=== PATIENT | female | born 1965 | race Caucasian/White ===

== ENCOUNTER 2022-04-14 15:57 | Emergency (ER) | payer OTHER, BC ==
--- OUTSIDE RECORDS SUMMARY | 2022-04-14 16:05 | XMS REPORT | Continuity of Care Document ---
:1965 Author Organization [facility] t Address [address] [place] [address] Care Team Providers Name Role Phone CARI MCKAY Primary Care Physician Unavailable Cari Mckay Attending Clinician Unavailable Layton Herron Attending Clinician Unavailable AGUSTÍN RICHARDS Attending Clinician Unavailable Agustín Richards MD Attending Clinician Doctor Unassigned, [place] Attending Clinician Unavailable Donn Sousa Attending Clinician MOOK MOORE Attending Clinician Unavailable Lab, Ad[facility] Fam Pob I Attending Clinician Unavailable Mook Irizarry Attending Clinician Fidel Matute MD Attending Clinician FIDEL MATUTE Attending Clinician Unavailable Payers Payer Name Policy Type Policy Number Effective Date Expiration Date S [place] [id number] 2015 00:00:00 [employer] 6 [id number] 2021 Common Spiri t Blue Shield of 00:00:00 - [facility] Problems Condition Condition Condition Status Onset Resolution Last Treating Co mments Source Name Details Category Date Date Treatment Clinician Date [id number] Carpal Problem Commo n [id number] tunnel Spirit syndrome - [facility]I on [facility] Depression Depression Problem C ommon Spirit - [facility] Benign Benign Problem Common hypertensi hypertensi Sp rita on on - CHI [facility] [id number] Overactive Problem Co mmon bladder Spirit - [facility] Diabetes Diabetes Problem Commo n mellitus Spirit without - CHI complicati [facility] Carpal Carpal Problem Common tunnel tunnel Spirit syndrome syndrome - [facility] [id number] Urinary Problem Common urgency Spirit [facility] [id number] Lower Problem Common abdominal Spirit pain - [facility] [id number] Dysuria Problem Common Spirit - [facility] [id number] Urinary Problem Comm on tract Spirit infection, - CHI site not [facility] [id number] Vitamin D Problem Comm on deficiency Spirit disease - [facility] [id number] Current Problem Common moderate Spirit episode of - CHI major [facility] prior episode [id number] History of Problem Co mmon skin Spirit cancer in - CHI adulthood [facility] [id number] Panic Problem Common attack Spirit - [facility] [id number] Type 2 Problem Common diabetes Spirit mellitus - CHI with [facility] Center long-term current use of insulin [id number] Generalize Problem Com mon d anxiety Spirit disorder - [facility] [id number] Body mass Problem Com mon index Spirit [BMI] - [facility] 40.0-44.9, [facility] [id number] History of Problem Co mmon partial Spirit hysterecto - CHI my [facility] [id number] [place] n [id number] tunnel Spirit syndrome, - CHI left upper [facility] [id number] Car[place] n [id number] tunnel Spirit syndrome, - CHI right [facility] [id number] Acute Problem Common stress Spirit disorder - [facility] No known No known Disease Unive rs active active ity of problems problems [facility] [id number] Morbid Problem Commo n 9104 (severe) Spirit obesity - CHI due to [facility] Allergies, Adverse Reactions, Alerts Allergy Allergy Status Severity Reaction(s) Onset Inactive Treating Comm ents Source Name Type Date Date Clinician SULFA DRUG Active Anaphylaxis Unive rs DYNE 03-01 ity of 00:00: [place] 00 Medical Branch LATEX DRUG Active Other-Cmnt Univer s INGREDI 03-01 ity of 00:00: [place] [facility] Latex Propensi Active Other - See Blisters U nivers ty to comments 03-01 ity of adverse 00:00: [place] reaction 00 Medical s Branch Sulfa Propensi Active Anaphylaxis Uni vers Dyne ty to 03-01 ity of adverse 00:00: [place] reaction 00 Medical s Branch Shellfis Shellfis Active Unknown Commo n h h Spirit - [facility] Latex Latex Active Unknown Common Spirit - [facility] NO KNOWN Drug Active Univers ALLERGIE Class ity of [facility] Social History Social Habit Start Date Stop Date Quantity Comments Source History of Common Spirit - Tobacco Use [facility] Sex Assigned At Common Sp rita - [facility] Exposure to 2022-02-19 2022-03-01 Not sure University SARS-CoV-2 00:00:00 09:12:00 [facility] (event) Branch Alcohol intake 2022-03-01 2022-03-01 Current drinker Unive rsity of 00:00:00 00:00:00 of alcohol [facility] (finding) Branch Tobacco use and 2022-03-01 2022-03-01 Smokeless tobacco Un iversity of exposure 00:00:00 00:00:[address] [facility] Smoking Status Start Date Stop Date Source Tobacco smoking consumption Univ ersity of [facility] unknown [place] Never smoked tobacco [facility] Medications Ordered Filled Start Stop Current Ordering Indication Dosage Frequency Signature Comments Components Source Medication Medication Date Date Medication? Clinician (SIG) Name Name Acetaminoph Acetaminoph 2021-06 No 1{table Acetaminop en-Codeine en-Codeine 1- t_as_ne hen-Codein #3 300-30 #3 300-30 00:00: eded} e #3 MG MG 00 300-30 MG Acetaminoph Acetaminoph 2021-06 No 1{table Acetaminop en-Codeine en-Codeine 1- t_as_ne hen-Codein #3 300-30 #3 300-30 00:00: eded} e #3 MG MG 00 300-30 MG conjugated Yes .9mg Take 0.9 Uni vers estrogens 9-28 mg by ity of (PREMARIN) 09:32: mouth in [place] as 0.9 mg 00 the Medical tablet morning. Branch irbesartan- Yes 1{tbl} Take 1 Un vickey hydrochloro 9-28 tablet by ity of thiazide 09:32: mouth in [place] 150-12.5 mg 00 the Medical per tablet morning. Branc h hydroCHLORO 0 Yes 12.5mg Take 12.5 Univers thiazide 9-28 mg by ity of 12.5 mg 09:32: mouth in [place] capsule 00 the Medical morning. Branch repaglinide Yes 2mg Take 2 mg U nivers 2 mg tablet 03-01 by mouth ity of 09:32: in the [place] 00 morning Medical and 2 mg Branch at noon and 2 mg in the evening. Take before meals. Take 2 tablets TID with meals tirzepatide Yes inject Univ ers (MOUNJARO) 03-01 under the ity of 2.5 mg/0.5 09:32: skin. [place] mL PnIj 00 Medical Branch venlafaxine Yes 150mg Take 150 U nivers XR 150 mg 9-28 mg by ity of 24 hr 09:32: mouth [place] capsule 00 daily with Medica l breakfast. Branch aspirin 81 0 Yes 81mg Take 81 mg U nivers mg chewable 28 by mouth ity of tablet 09:32: in the [place] 00 morning. Medical Branch MULTIVITAMI Yes Take by Uni vers N ORAL 9-28 mouth. ity of 09:32: [place] 00 Medical Branch conjugated 0 Yes .9mg Take 0.9 Uni vers estrogens 9-28 mg by ity of (PREMARIN) 09:32: mouth in [place] as 0.9 mg 00 the Medical tablet morning. Branch irbesartan- Yes 1{tbl} Take 1 Un vickey hydrochloro 9-28 tablet by ity of thiazide 09:32: mouth in [place] 150-12.5 mg 00 the Medical per tablet morning. Branc h hydroCHLORO 0 Yes 12.5mg Take 12.5 Univers thiazide 9-28 mg by ity of 12.5 mg 09:32: mouth in [place] capsule 00 the Medical morning. Branch repaglinide Yes 2mg Take 2 mg U nivers 2 mg tablet 03-01 by mouth ity of 09:32: in the 00 morning Medical and 2 mg Branch at noon and 2 mg in the evening. Take before meals. Take 2 tablets TID with meals tirzepatide Yes inject Univ ers (MOUNJARO) 03-01 under the ity of 2.5 mg/0.5 09:32: skin. [place] mL PnIj 00 Medical Branch venlafaxine Yes 150mg Take 150 U nivers XR 150 mg - mg by ity of 24 hr 09:32: mouth [place] capsule 00 daily with Medica l breakfast. Branch aspirin 81 Yes 81mg Take 81 mg U nivers mg chewable 03-01 by mouth ity of tablet 09:32: in the [place] 00 morning. Medical Branch MULTIVITAMI Yes Take by Uni vers N ORAL 03-01 mouth. ity of 09:32: [place] 00 Medical Branch Mounjaro Mounjaro 2021- No Mounjaro 2.5 2.5 02-08 12-05 2.5 MG/0.5ML MG/0.5ML 00:00: 00:00 MG/0.5ML 00 :00 Mounjaro Mounjaro 2021- No Mounjaro 2.5 2.5 02-08 12-05 2.5 MG/0.5ML MG/0.5ML 00:00: 00:00 MG/0.5ML 00 :00 Mounjaro Mounjaro 2021-0 2021- No Mounjaro 2.5 2.5 02-08 12-05 2.5 MG/0.5ML MG/0.5ML 00:00: 00:00 MG/0.5ML 00 :00 Mounjaro Mounjaro 2021-0 202- No Mounjaro 2.5 2.5 02-08 12-05 2.5 MG/0.5ML MG/0.5ML 00:00: 00:00 MG/0.5ML 00 :00 Mounjaro Mounjaro 2021- No Mounjaro 2.5 2.5 02-08 2.5 MG/0.5ML MG/0.5ML 00:00: 00:00 MG/0.5ML 00 :00 metroNIDAZO metroNIDAZO 0 2022- No 1{table TID metroNIDAZ LE 500 MG LE 500 MG 12-08 t} OLE 500 MG 00:00: 00:00 00 :00 metroNIDAZO metroNIDAZO 0 2- No 1{table TID metroNIDAZ LE 500 MG LE 500 MG 12-08 t} OLE 500 MG 00:00: 00:00 00 :00 Cipro 500 Cipro 500 2- No 1{table BID Cipro 500 MG MG 12-08 t} MG 00:00: 00:00 00 :00 Cipro 500 Cipro 500 0 2- No 1{table BID Cipro 500 MG MG 12-08 t} MG 00:00: 00:00 00 :00 glipiZIDE glipiZIDE 0 No 1{table QD glipiZIDE XL 2.5 MG XL 2.5 MG 6-08 t_with_ XL 2.5 MG 00:00: food} glipiZIDE glipiZIDE 0 No 1{table QD glipiZIDE XL 2.5 MG XL 2.5 MG 6-08 t_with_ XL 2.5 MG 00:00: food} 00 glipiZIDE glipiZIDE 0 No 1{table QD glipiZIDE XL 2.5 MG XL 2.5 MG 6-08 t_with_ XL 2.5 MG 00:00: food} 00 ALPRAZolam ALPRAZolam 2020-06 No 1{table ALPRAZolam 0.5 MG 0.5 MG 1-23 t} 0.5 MG 00:00: 00 ALPRAZolam ALPRAZolam 2020-06 No 1{table ALPRAZolam 0.5 MG 0.5 MG 1-23 t} 0.5 MG 00:00: 00 ALPRAZolam ALPRAZolam 2020-06 No 1{table ALPRAZolam 0.5 MG 0.5 MG 1-23 t} 0.5 MG 00:00: 00 ALPRAZolam ALPRAZolam 2020-06 No 1{table ALPRAZolam 0.5 MG 0.5 MG 1-23 t} 0.5 MG 00:00: 00 ALPRAZolam ALPRAZolam 2020-06 No 1{table ALPRAZolam 0.5 MG 0.5 MG 1-23 t} 0.5 MG 00:00: 00 ALPRAZolam ALPRAZolam 2020-06 No 1{table ALPRAZolam 0.5 MG 0.5 MG 1-23 t} 0.5 MG 00:00: 00 ALPRAZolam ALPRAZolam 2020-06 No 1{table ALPRAZolam 0.5 MG 0.5 MG 1-23 t} 0.5 MG 00:00: 00 ALPRAZolam ALPRAZolam 2020-06 No 1{table ALPRAZolam 0.5 MG 0.5 MG 1-23 t} 0.5 MG 00:00: 00 ALPRAZolam ALPRAZolam 2020-06 No 1{table ALPRAZolam 0.5 MG 0.5 MG 1-23 t} 0.5 MG 00:00: 00 ALPRAZolam ALPRAZolam 2020-06 No 1{table ALPRAZolam 0.5 MG 0.5 MG 1-23 t} 0.5 MG 00:00: 00 ALPRAZolam ALPRAZolam 2020-06 No 1{table ALPRAZolam 0.5 MG 0.5 MG 1-23 t} 0.5 MG 00:00: 00 ALPRAZolam ALPRAZolam 2020-06 No 1{table ALPRAZolam 0.5 MG 0.5 MG 1-23 t} 0.5 MG 00:00: 00 ALPRAZolam ALPRAZolam 2020-06 No 1{table ALPRAZolam 0.5 MG 0.5 MG 1-23 t} 0.5 MG 00:00: 00 ALPRAZolam ALPRAZolam 2020-06 No 1{table ALPRAZolam 0.5 MG 0.5 MG 1-23 t} 0.5 MG 00:00: 00 ALPRAZolam ALPRAZolam 2020-06 No 1{table ALPRAZolam 0.5 MG 0.5 MG 1-23 t} 0.5 MG 00:00: 00 ALPRAZolam ALPRAZolam 2020-06 No 1{table ALPRAZolam 0.5 MG 0.5 MG 1-23 t} 0.5 MG 00:00: 00 ALPRAZolam ALPRAZolam 2020-06 No 1{table ALPRAZolam 0.5 MG 0.5 MG 1-23 t} 0.5 MG 00:00: 00 ALPRAZolam ALPRAZolam 2020-06 No 1{table ALPRAZolam 0.5 MG 0.5 MG 1-23 t} 0.5 MG 00:00: 00 ALPRAZolam ALPRAZolam 2020-06 No 1{table ALPRAZolam 0.5 MG 0.5 MG 1-23 t} 0.5 MG 00:00: 00 ALPRAZolam ALPRAZolam 2020-06 No 1{table ALPRAZolam 0.5 MG 0.5 MG 1-23 t} 0.5 MG 00:00: 00 ALPRAZolam ALPRAZolam 2020-06 No 1{table ALPRAZolam 0.5 MG 0.5 MG 1-23 t} 0.5 MG 00:00: 00 ALPRAZolam ALPRAZolam 2020-06 No 1{table ALPRAZolam 0.5 MG 0.5 MG 1-23 t} 0.5 MG 00:00: 00 ALPRAZolam ALPRAZolam 2020-06 No 1{table ALPRAZolam 0.5 MG 0.5 MG 0-18 t} 0.5 MG 00:00: 00 ALPRAZolam ALPRAZolam 2020-06 No 1{table ALPRAZolam 0.5 MG 0.5 MG 0-18 t} 0.5 MG 00:00: 00 Gentamicin Gentamicin 2019-06 No 1{drop_ 6xD Gentamicin Sulfate 0.3 Sulfate 0.3 2-31 into_af Sulfate % % 00:00: fected_ 0.3 % 00 eye} Gentamicin Gentamicin 2019-06 No 1{drop_ 6xD Gentamicin Sulfate 0.3 Sulfate 0.3 2-31 into_af Sulfate % % 00:00: fected_ 0.3 % 00 eye} Gentamicin Gentamicin 2019-06 No 1{drop_ 6xD Gentamicin Sulfate 0.3 Sulfate 0.3 2-31 into_af Sulfate % % 00:00: fected_ 0.3 % 00 eye} Gentamicin Gentamicin 2019-06 No 1{drop_ 6xD Gentamicin Sulfate 0.3 Sulfate 0.3 2-31 into_af Sulfate % % 00:00: fected_ 0.3 % 00 eye} Gentamicin Gentamicin 2019-06 No 1{drop_ 6xD Gentamicin Sulfate 0.3 Sulfate 0.3 2-31 into_af Sulfate % % 00:00: fected_ 0.3 % 00 eye} Gentamicin Gentamicin 2019-06 No 1{drop_ 6xD Gentamicin Sulfate 0.3 Sulfate 0.3 2-31 into_af Sulfate % % 00:00: fected_ 0.3 % 00 eye} Gentamicin Gentamicin 2019-06 No 1{drop_ 6xD Gentamicin Sulfate 0.3 Sulfate 0.3 2-31 into_af Sulfate % % 00:00: fected_ 0.3 % 00 eye} Gentamicin Gentamicin 2019-06 No 1{drop_ 6xD Gentamicin Sulfate 0.3 Sulfate 0.3 2-31 into_af Sulfate % % 00:00: fected_ 0.3 % 00 eye} Gentamicin Gentamicin 2019-06 No 1{drop_ 6xD Gentamicin Sulfate 0.3 Sulfate 0.3 2-31 into_af Sulfate % % 00:00: fected_ 0.3 % 00 eye} Gentamicin Gentamicin 2019-06 No 1{drop_ 6xD Gentamicin Sulfate 0.3 Sulfate 0.3 2-31 into_af Sulfate % % 00:00: fected_ 0.3 % 00 eye} Gentamicin Gentamicin 2019-06 No 1{drop_ 6xD Gentamicin Sulfate 0.3 Sulfate 0.3 2-31 into_af Sulfate % % 00:00: fected_ 0.3 % 00 eye} Gentamicin Gentamicin 2019-06 No 1{drop_ 6xD Gentamicin Sulfate 0.3 Sulfate 0.3 2-31 into_af Sulfate % % 00:00: fected_ 0.3 % 00 eye} Gentamicin Gentamicin 2019-06 No 1{drop_ 6xD Gentamicin Sulfate 0.3 Sulfate 0.3 2-31 into_af Sulfate % % 00:00: fected_ 0.3 % 00 eye} Gentamicin Gentamicin 2019-06 No 1{drop_ 6xD Gentamicin Sulfate 0.3 Sulfate 0.3 2-31 into_af Sulfate % % 00:00: fected_ 0.3 % 00 eye} Gentamicin Gentamicin 2019-06 No 1{drop_ 6xD Gentamicin Sulfate 0.3 Sulfate 0.3 2-31 into_af Sulfate % % 00:00: fected_ 0.3 % 00 eye} Gentamicin Gentamicin 2019-06 No 1{drop_ 6xD Gentamicin Sulfate 0.3 Sulfate 0.3 2-31 into_af Sulfate % % 00:00: fected_ 0.3 % 00 eye} Gentamicin Gentamicin 2019-06 No 1{drop_ 6xD Gentamicin Sulfate 0.3 Sulfate 0.3 2-31 into_af Sulfate % % 00:00: fected_ 0.3 % 00 eye} Gentamicin Gentamicin 2019-06 No 1{drop_ 6xD Gentamicin Sulfate 0.3 Sulfate 0.3 2-31 into_af Sulfate % % 00:00: fected_ 0.3 % 00 eye} Gentamicin Gentamicin 2019-06 No 1{drop_ 6xD Gentamicin Sulfate 0.3 Sulfate 0.3 2-31 into_af Sulfate % % 00:00: fected_ 0.3 % 00 eye} Gentamicin Gentamicin 2019-06 No 1{drop_ 6xD Gentamicin Sulfate 0.3 Sulfate 0.3 2-31 into_af Sulfate % % 00:00: fected_ 0.3 % 00 eye} Gentamicin Gentamicin 2019-06 No 1{drop_ 6xD Gentamicin Sulfate 0.3 Sulfate 0.3 2-31 into_af Sulfate % % 00:00: fected_ 0.3 % 00 eye} Gentamicin Gentamicin 2019-06 No 1{drop_ 6xD Gentamicin Sulfate 0.3 Sulfate 0.3 2-31 into_af Sulfate % % 00:00: fected_ 0.3 % 00 eye} Gentamicin Gentamicin 2019-06 No 1{drop_ 6xD Gentamicin Sulfate 0.3 Sulfate 0.3 2-31 into_af Sulfate % % 00:00: fected_ 0.3 % 00 eye} Gentamicin Gentamicin 2019-06 No 1{drop_ 6xD Gentamicin Sulfate 0.3 Sulfate 0.3 2-31 into_af Sulfate % % 00:00: fected_ 0.3 % 00 eye} Venlafaxine Venlafaxine 2019- Yes Cari 1 capsule Common HCl ER HCl ER 9-15 [place] with food Spiri t 00:00: - CHI [facility] Estradiol Estradiol 0 Yes Cari as C ommon 9-13 [place]ck[place] directed Spirit 00:00: - CHI [facility] Estradiol Estradiol 0 No Estradiol 0.1 MG/GM 0.1 MG/GM 9-13 0.1 MG/GM 00:00: 00 Estradiol Estradiol 0 No Estradiol 0.1 MG/GM 0.1 MG/GM 9-13 0.1 MG/GM 00:00: 00 Estradiol Estradiol 0 No Estradiol 0.1 MG/GM 0.1 MG/GM 9-13 0.1 MG/GM 00:00: 00 Estradiol Estradiol 0 No Estradiol 0.1 MG/GM 0.1 MG/GM 9-13 0.1 MG/GM 00:00: 00 Estradiol Estradiol 0 No Estradiol 0.1 MG/GM 0.1 MG/GM 9-13 0.1 MG/GM 00:00: 00 Estradiol Estradiol No Estradiol 0.1 MG/GM 0.1 MG/GM 9-13 0.1 MG/GM 00:00: 00 Estradiol Estradiol 0 No Estradiol 0.1 MG/GM 0.1 MG/GM 9-13 0.1 MG/GM 00:00: 00 Estradiol Estradiol 0 No Estradiol 0.1 MG/GM 0.1 MG/GM 9-13 0.1 MG/GM 00:00: 00 Estradiol Estradiol 0 No Estradiol 0.1 MG/GM 0.1 MG/GM 9-13 0.1 MG/GM 00:00: 00 Estradiol Estradiol 0 No Estradiol 0.1 MG/GM 0.1 MG/GM 9-13 0.1 MG/GM 00:00: 00 Estradiol Estradiol 0 No Estradiol 0.1 MG/GM 0.1 MG/GM 9-13 0.1 MG/GM 00:00: 00 Estradiol Estradiol 0 No Estradiol 0.1 MG/GM 0.1 MG/GM 9-13 0.1 MG/GM 00:00: 00 Estradiol Estradiol 0 No Estradiol 0.1 MG/GM 0.1 MG/GM 9-13 0.1 MG/GM 00:00: 00 Estradiol Estradiol 0 No Estradiol 0.1 MG/GM 0.1 MG/GM 9-13 0.1 MG/GM 00:00: 00 Estradiol Estradiol No Estradiol 0.1 MG/GM 0.1 MG/GM 9-13 0.1 MG/GM 00:00: 00 Estradiol Estradiol No Estradiol 0.1 MG/GM 0.1 MG/GM 9-13 0.1 MG/GM 00:00: 00 Estradiol Estradiol No Estradiol 0.1 MG/GM 0.1 MG/GM 9-13 0.1 MG/GM 00:00: 00 Estradiol Estradiol No Estradiol 0.1 MG/GM 0.1 MG/GM 9-13 0.1 MG/GM 00:00: 00 Estradiol Estradiol No Estradiol 0.1 MG/GM 0.1 MG/GM 9-13 0.1 MG/GM 00:00: 00 Estradiol Estradiol No Estradiol 0.1 MG/GM 0.1 MG/GM 9-13 0.1 MG/GM 00:00: 00 Estradiol Estradiol No Estradiol 0.1 MG/GM 0.1 MG/GM 9-13 0.1 MG/GM 00:00: 00 Estradiol Estradiol No Estradiol 0.1 MG/GM 0.1 MG/GM 9-13 0.1 MG/GM 00:00: 00 Estradiol Estradiol 0 No Estradiol 0.1 MG/GM 0.1 MG/GM 9-13 0.1 MG/GM 00:00: 00 Estradiol Estradiol 0 No Estradiol 0.1 MG/GM 0.1 MG/GM 9-13 0.1 MG/GM 00:00: 00 Hydrochloro Hydrochloro Yes Cari 1 capsule Common thiazide thiazide [place] in the Spir it morning [facility] Premarin Premarin Yes Cari 1 tablet C ommon [facility] Vitamin D Vitamin D Yes Cari 1 tablet Common [place] [facility] Aspirin 81 Aspirin 81 Yes Cari 1 tablet Common [place] [facility] Irbesartan- Irbesartan- Yes Cari 1 tablet Common Hydrochloro Hydrochloro [place] Spirit thiazide thiazide [facility] Venlafaxine Venlafaxine Yes Cari 1 tablet Common HCl HCl [place] with food [facility] Multivitami Multivitami Yes Cari not Common n n [place] defined [facility] Super B Super B Yes Cari not Common Complex Complex [place] defined Spiri t Maxi Maxi - CHI [facility] Magnesium Magnesium Yes Cari 1 tablet Common [place] with a Spirit meal [facility] Repaglinide Repaglinide Yes Cari 2 tablets Common [place] Spirit [facility] glipiZIDE glipiZIDE No glipiZIDE ER 2.5 MG ER 2.5 MG ER 2.5 MG glipiZIDE glipiZIDE No glipiZIDE ER 2.5 MG ER 2.5 MG ER 2.5 MG busPIRone busPIRone No busPIRone HCl 10 MG HCl 10 MG HCl 10 MG Premarin Premarin No 1{table Premarin 0.9 MG 0.9 MG t} 0.9 MG Irbesartan- Irbesartan- No Irbesartan hydroCHLORO hydroCHLORO -hydroCHLO thiazide thiazide ROthiazide 150-12.5 MG 150-12.5 MG 150-12.5 MG Premarin Premarin No 1{table Premarin 0.9 MG 0.9 MG t} 0.9 MG Venlafaxine Venlafaxine No Venlafaxin HCl ER 150 HCl ER 150 e HCl ER MG MG 150 MG Venlafaxine Venlafaxine No 1{capsu QD Venlafaxin HCl ER 150 HCl ER 150 le_with e HCl ER MG MG _food} 150 MG ALPRAZolam ALPRAZolam No 1{table ALPRAZolam 0.5 MG 0.5 MG t} 0.5 MG Super B Super B No Super B Complex Complex Complex Maxi - Maxi - Maxi - Magnesium Magnesium No 1{table QD Magnesium 250 MG 250 MG t_with_ 250 MG a_meal} Premarin Premarin No Premarin 0.9 MG 0.9 MG 0.9 MG Repaglinide Repaglinide No BID Repaglinid 1 MG 1 MG e 1 MG Multivitami Multivitami No Multivitam n n in hydroCHLORO hydroCHLORO No hydroCHLOR thiazide thiazide Othiazide 12.5 MG 12.5 MG 12.5 MG Vitamin D Vitamin D No 1{table QD Vitamin D 1000 UNIT 1000 UNIT t} 1000 UNIT hydroCHLORO hydroCHLORO No hydroCHLOR thiazide thiazide Othiazide 12.5 MG 12.5 MG 12.5 MG Aspirin 81 Aspirin 81 No 1{table QD Aspirin 81 t} Venlafaxine Venlafaxine No 1{table QD Venlafaxin HCl 37.5 MG HCl 37.5 MG t_with_ e HCl 37.5 food} MG Mounjaro 5 Mounjaro 5 No Mounjaro 5 MG/0.5ML MG/0.5ML MG/0.5ML Venlafaxine Venlafaxine No 1{capsu QD Venlafaxin HCl ER 150 HCl ER 150 le_with e HCl ER MG MG _food} 150 MG Multivitami Multivitami No Multivitam n n in Multivitami Multivitami No Multivitam n n in Aspirin 81 Aspirin 81 No 1{table QD Aspirin 81 t} Repaglinide Repaglinide No 2{table TID Repaglinid 2 MG 2 MG ts} e 2 MG Vitamin D Vitamin D No 1{table QD Vitamin D 1000 UNIT 1000 UNIT t} 1000 UNIT Irbesartan- Irbesartan- No 1{table QD Irbesartan hydroCHLORO hydroCHLORO t} -hydroCHLO thiazide thiazide ROthiazide 150-12.5 MG 150-12.5 MG 150-12.5 MG Premarin Premarin No Premarin 0.9 MG 0.9 MG 0.9 MG Venlafaxine Venlafaxine No Venlafaxin HCl ER 150 HCl ER 150 e HCl ER MG MG 150 MG Super B Super B No Super B Complex Complex Complex Maxi - Maxi - Maxi - busPIRone busPIRone No busPIRone HCl 10 MG HCl 10 MG HCl 10 MG Magnesium Magnesium No 1{table QD Magnesium 250 MG 250 MG t_with_ 250 MG a_meal} Multivitami Multivitami No Multivitam n n in Irbesartan- Irbesartan- No Irbesartan hydroCHLORO hydroCHLORO -hydroCHLO thiazide thiazide ROthiazide 150-12.5 MG 150-12.5 MG 150-12.5 MG Venlafaxine Venlafaxine No 1{table QD Venlafaxin HCl 37.5 MG HCl 37.5 MG t_with_ e HCl 37.5 food} MG Venlafaxine Venlafaxine No 1{capsu QD Venlafaxin HCl ER 150 HCl ER 150 le_with e HCl ER MG MG _food} 150 MG Repaglinide Repaglinide No Repaglinid 2 MG 2 MG e 2 MG ALPRAZolam ALPRAZolam No 1{table ALPRAZolam 0.5 MG 0.5 MG t} 0.5 MG Venlafaxine Venlafaxine No Venlafaxin HCl ER 37.5 HCl ER 37.5 e HCl ER MG MG 37.5 MG hydroCHLORO hydroCHLORO No 1{capsu QD hydroCHLOR thiazide thiazide le_in_t Othiazide 12.5 MG 12.5 MG he_morn 12.5 MG ing} glipiZIDE glipiZIDE No glipiZIDE ER 2.5 MG ER 2.5 MG ER 2.5 MG Premarin Premarin No 1{table Premarin 0.9 MG 0.9 MG t} 0.9 MG hydroCHLORO hydroCHLORO No hydroCHLOR thiazide thiazide Othiazide 12.5 MG 12.5 MG 12.5 MG Multivitami Multivitami No Multivitam n n in Aspirin 81 Aspirin 81 No 1{table QD Aspirin 81 t} Repaglinide Repaglinide No 2{table TID Repaglinid 2 MG 2 MG ts} e 2 MG Vitamin D Vitamin D No 1{table QD Vitamin D 1000 UNIT 1000 UNIT t} 1000 UNIT Irbesartan- Irbesartan- No 1{table QD Irbesartan hydroCHLORO hydroCHLORO t} -hydroCHLO thiazide thiazide ROthiazide 150-12.5 MG 150-12.5 MG 150-12.5 MG Repaglinide Repaglinide No Repaglinid 2 MG 2 MG e 2 MG Venlafaxine Venlafaxine No Venlafaxin HCl ER 150 HCl ER 150 e HCl ER MG MG 150 MG hydroCHLORO hydroCHLORO No 1{capsu QD hydroCHLOR thiazide thiazide le_in_t Othiazide 12.5 MG 12.5 MG he_morn 12.5 MG ing} Aspirin 81 Aspirin 81 No 1{table QD Aspirin 81 t} Super B Super B No Super B Complex Complex Complex Maxi - Maxi - Maxi - hydroCHLORO hydroCHLORO No hydroCHLOR thiazide thiazide Othiazide 12.5 MG 12.5 MG 12.5 MG Premarin Premarin No 1{table Premarin 0.9 MG 0.9 MG t} 0.9 MG Irbesartan- Irbesartan- No Irbesartan hydroCHLORO hydroCHLORO -hydroCHLO thiazide thiazide ROthiazide 150-12.5 MG 150-12.5 MG 150-12.5 MG glipiZIDE glipiZIDE No glipiZIDE ER 2.5 MG ER 2.5 MG ER 2.5 MG Vitamin D Vitamin D No 1{table QD Vitamin D 1000 UNIT 1000 UNIT t} 1000 UNIT Venlafaxine Venlafaxine No 1{table QD Venlafaxin HCl 37.5 MG HCl 37.5 MG t_with_ e HCl 37.5 food} MG Magnesium Magnesium No 1{table QD Magnesium 250 MG 250 MG t_with_ 250 MG a_meal} Venlafaxine Venlafaxine No Venlafaxin HCl ER 37.5 HCl ER 37.5 e HCl ER MG MG 37.5 MG Multivitami Multivitami No Multivitam n n in ALPRAZolam ALPRAZolam No 1{table ALPRAZolam 0.5 MG 0.5 MG t} 0.5 MG Mounjaro 5 Mounjaro 5 No Mounjaro 5 MG/0.5ML MG/0.5ML MG/0.5ML Multivitami Multivitami No Multivitam n n in Irbesartan- Irbesartan- No 1{table QD Irbesartan hydroCHLORO hydroCHLORO t} -hydroCHLO thiazide thiazide ROthiazide 150-12.5 MG 150-12.5 MG 150-12.5 MG busPIRone busPIRone No busPIRone HCl 10 MG HCl 10 MG HCl 10 MG Premarin Premarin No Premarin 0.9 MG 0.9 MG 0.9 MG Venlafaxine Venlafaxine No 1{capsu QD Venlafaxin HCl ER 150 HCl ER 150 le_with e HCl ER MG MG _food} 150 MG Multivitami Multivitami No Multivitam n n in Irbesartan- Irbesartan- No 1{table QD Irbesartan hydroCHLORO hydroCHLORO t} -hydroCHLO thiazide thiazide ROthiazide 150-12.5 MG 150-12.5 MG 150-12.5 MG Vitamin D Vitamin D No 1{table QD Vitamin D 1000 UNIT 1000 UNIT t} 1000 UNIT Super B Super B No Super B Complex Complex Complex Maxi - Maxi - Maxi - Multivitami Multivitami No Multivitam n n in Premarin Premarin No Premarin 0.9 MG 0.9 MG 0.9 MG Magnesium Magnesium No 1{table QD Magnesium 250 MG 250 MG t_with_ 250 MG a_meal} Premarin Premarin No 1{table Premarin 0.9 MG 0.9 MG t} 0.9 MG hydroCHLORO hydroCHLORO No 1{capsu QD hydroCHLOR thiazide thiazide le_in_t Othiazide 12.5 MG 12.5 MG he_morn 12.5 MG ing} Venlafaxine Venlafaxine No 1{table QD Venlafaxin HCl 37.5 MG HCl 37.5 MG t_with_ e HCl 37.5 food} MG Repaglinide Repaglinide No 2{table TID Repaglinid 2 MG 2 MG ts} e 2 MG Venlafaxine Venlafaxine No 1{capsu QD Venlafaxin HCl ER 75 HCl ER 75 le_with e HCl ER MG MG _food} 75 MG Aspirin 81 Aspirin 81 No 1{table QD Aspirin 81 t} Multivitami Multivitami No Multivitam n n in Irbesartan- Irbesartan- No 1{table QD Irbesartan hydroCHLORO hydroCHLORO t} -hydroCHLO thiazide thiazide ROthiazide 150-12.5 MG 150-12.5 MG 150-12.5 MG Vitamin D Vitamin D No 1{table QD Vitamin D 1000 UNIT 1000 UNIT t} 1000 UNIT Super B Super B No Super B Complex Complex Complex Maxi - Maxi - Maxi - Multivitami Multivitami No Multivitam n n in Premarin Premarin No Premarin 0.9 MG 0.9 MG 0.9 MG Magnesium Magnesium No 1{table QD Magnesium 250 MG 250 MG t_with_ 250 MG a_meal} Premarin Premarin No 1{table Premarin 0.9 MG 0.9 MG t} 0.9 MG hydroCHLORO hydroCHLORO No 1{capsu QD hydroCHLOR thiazide thiazide le_in_t Othiazide 12.5 MG 12.5 MG he_morn 12.5 MG ing} Venlafaxine Venlafaxine No 1{table QD Venlafaxin HCl 37.5 MG HCl 37.5 MG t_with_ e HCl 37.5 food} MG Repaglinide Repaglinide No 2{table TID Repaglinid 2 MG 2 MG ts} e 2 MG Venlafaxine Venlafaxine No 1{capsu QD Venlafaxin HCl ER 75 HCl ER 75 le_with e HCl ER MG MG _food} 75 MG Aspirin 81 Aspirin 81 No 1{table QD Aspirin 81 t} Multivitami Multivitami No Multivitam n n in Magnesium Magnesium No 1{table QD Magnesium 250 MG 250 MG t_with_ 250 MG a_meal} Irbesartan- Irbesartan- No Irbesartan hydroCHLORO hydroCHLORO -hydroCHLO thiazide thiazide ROthiazide 150-12.5 MG 150-12.5 MG 150-12.5 MG Venlafaxine Venlafaxine No 1{table QD Venlafaxin HCl 37.5 MG HCl 37.5 MG t_with_ e HCl 37.5 food} MG Repaglinide Repaglinide No Repaglinid 2 MG 2 MG e 2 MG Irbesartan- Irbesartan- No 1{table QD Irbesartan hydroCHLORO hydroCHLORO t} -hydroCHLO thiazide thiazide ROthiazide 150-12.5 MG 150-12.5 MG 150-12.5 MG Vitamin D Vitamin D No 1{table QD Vitamin D 1000 UNIT 1000 UNIT t} 1000 UNIT hydroCHLORO hydroCHLORO No 1{capsu QD hydroCHLOR thiazide thiazide le_in_t Othiazide 12.5 MG 12.5 MG he_morn 12.5 MG ing} ALPRAZolam ALPRAZolam No 1{table ALPRAZolam 0.5 MG 0.5 MG t} 0.5 MG busPIRone busPIRone No busPIRone HCl 10 MG HCl 10 MG HCl 10 MG Multivitami Multivitami No Multivitam n n in Premarin Premarin No 1{table Premarin 0.9 MG 0.9 MG t} 0.9 MG hydroCHLORO hydroCHLORO No hydroCHLOR thiazide thiazide Othiazide 12.5 MG 12.5 MG 12.5 MG Aspirin 81 Aspirin 81 No 1{table QD Aspirin 81 t} Venlafaxine Venlafaxine No 1{capsu QD Venlafaxin HCl ER 150 HCl ER 150 le_with e HCl ER MG MG _food} 150 MG Venlafaxine Venlafaxine No Venlafaxin HCl ER 37.5 HCl ER 37.5 e HCl ER MG MG 37.5 MG Super B Super B No Super B Complex Complex Complex Maxi - Maxi - Maxi - Repaglinide Repaglinide No 2{table TID Repaglinid 2 MG 2 MG ts} e 2 MG Premarin Premarin No Premarin 0.9 MG 0.9 MG 0.9 MG Vitamin D Vitamin D No 1{table QD Vitamin D 1000 UNIT 1000 UNIT t} 1000 UNIT Venlafaxine Venlafaxine No 1{table QD Venlafaxin HCl 37.5 MG HCl 37.5 MG t_with_ e HCl 37.5 food} MG Repaglinide Repaglinide No Repaglinid 2 MG 2 MG e 2 MG Repaglinide Repaglinide No 2{table TID Repaglinid 2 MG 2 MG ts} e 2 MG Venlafaxine Venlafaxine No Venlafaxin HCl ER 37.5 HCl ER 37.5 e HCl ER MG MG 37.5 MG Irbesartan- Irbesartan- No Irbesartan hydroCHLORO hydroCHLORO -hydroCHLO thiazide thiazide ROthiazide 150-12.5 MG 150-12.5 MG 150-12.5 MG hydroCHLORO hydroCHLORO No hydroCHLOR thiazide thiazide Othiazide 12.5 MG 12.5 MG 12.5 MG ALPRAZolam ALPRAZolam No 1{table ALPRAZolam 0.5 MG 0.5 MG t} 0.5 MG Aspirin 81 Aspirin 81 No 1{table QD Aspirin 81 t} Multivitami Multivitami No Multivitam n n in busPIRone busPIRone No busPIRone HCl 10 MG HCl 10 MG HCl 10 MG Premarin Premarin No 1{table Premarin 0.9 MG 0.9 MG t} 0.9 MG Magnesium Magnesium No 1{table QD Magnesium 250 MG 250 MG t_with_ 250 MG a_meal} Super B Super B No Super B Complex Complex Complex Maxi - Maxi - Maxi - hydroCHLORO hydroCHLORO No 1{capsu QD hydroCHLOR thiazide thiazide le_in_t Othiazide 12.5 MG 12.5 MG he_morn 12.5 MG ing} Premarin Premarin No Premarin 0.9 MG 0.9 MG 0.9 MG Venlafaxine Venlafaxine No Venlafaxin HCl ER 150 HCl ER 150 e HCl ER MG MG 150 MG Irbesartan- Irbesartan- No 1{table QD Irbesartan hydroCHLORO hydroCHLORO t} -hydroCHLO thiazide thiazide ROthiazide 150-12.5 MG 150-12.5 MG 150-12.5 MG Venlafaxine Venlafaxine No 1{capsu QD Venlafaxin HCl ER 150 HCl ER 150 le_with e HCl ER MG MG _food} 150 MG Multivitami Multivitami No Multivitam n n in Vitamin D Vitamin D No 1{table QD Vitamin D 1000 UNIT 1000 UNIT t} 1000 UNIT Venlafaxine Venlafaxine No 1{table QD Venlafaxin HCl 37.5 MG HCl 37.5 MG t_with_ e HCl 37.5 food} MG Repaglinide Repaglinide No Repaglinid 2 MG 2 MG e 2 MG Repaglinide Repaglinide No 2{table TID Repaglinid 2 MG 2 MG ts} e 2 MG ALPRAZolam ALPRAZolam No 1{table ALPRAZolam 0.5 MG 0.5 MG t} 0.5 MG Irbesartan- Irbesartan- No Irbesartan hydroCHLORO hydroCHLORO -hydroCHLO thiazide thiazide ROthiazide 150-12.5 MG 150-12.5 MG 150-12.5 MG Venlafaxine Venlafaxine No 1{capsu QD Venlafaxin HCl ER 75 HCl ER 75 le_with e HCl ER MG MG _food} 75 MG hydroCHLORO hydroCHLORO No hydroCHLOR thiazide thiazide Othiazide 12.5 MG 12.5 MG 12.5 MG Aspirin 81 Aspirin 81 No 1{table QD Aspirin 81 t} Multivitami Multivitami No Multivitam n n in busPIRone busPIRone No busPIRone HCl 10 MG HCl 10 MG HCl 10 MG Venlafaxine Venlafaxine No Venlafaxin HCl ER 37.5 HCl ER 37.5 e HCl ER MG MG 37.5 MG Magnesium Magnesium No 1{table QD Magnesium 250 MG 250 MG t_with_ 250 MG a_meal} Super B Super B No Super B Complex Complex Complex Maxi - Maxi - Maxi - hydroCHLORO hydroCHLORO No 1{capsu QD hydroCHLOR thiazide thiazide le_in_t Othiazide 12.5 MG 12.5 MG he_morn 12.5 MG ing} Premarin Premarin No Premarin 0.9 MG 0.9 MG 0.9 MG Venlafaxine Venlafaxine No Venlafaxin HCl ER 150 HCl ER 150 e HCl ER MG MG 150 MG Irbesartan- Irbesartan- No 1{table QD Irbesartan hydroCHLORO hydroCHLORO t} -hydroCHLO thiazide thiazide ROthiazide 150-12.5 MG 150-12.5 MG 150-12.5 MG Premarin Premarin No 1{table Premarin 0.9 MG 0.9 MG t} 0.9 MG Multivitami Multivitami No Multivitam n n in Multivitami Multivitami No Multivitam n n in Venlafaxine Venlafaxine No 1{table QD Venlafaxin HCl 37.5 MG HCl 37.5 MG t_with_ e HCl 37.5 food} MG Multivitami Multivitami No Multivitam n n in Repaglinide Repaglinide No Repaglinid 2 MG 2 MG e 2 MG hydroCHLORO hydroCHLORO No 1{capsu QD hydroCHLOR thiazide thiazide le_in_t Othiazide 12.5 MG 12.5 MG he_morn 12.5 MG ing} Vitamin D Vitamin D No 1{table QD Vitamin D 1000 UNIT 1000 UNIT t} 1000 UNIT Irbesartan- Irbesartan- No 1{table QD Irbesartan hydroCHLORO hydroCHLORO t} -hydroCHLO thiazide thiazide ROthiazide 150-12.5 MG 150-12.5 MG 150-12.5 MG Venlafaxine Venlafaxine No Venlafaxin HCl ER 150 HCl ER 150 e HCl ER MG MG 150 MG Venlafaxine Venlafaxine No Venlafaxin HCl ER 37.5 HCl ER 37.5 e HCl ER MG MG 37.5 MG busPIRone busPIRone No busPIRone HCl 10 MG HCl 10 MG HCl 10 MG Premarin Premarin No 1{table Premarin 0.9 MG 0.9 MG t} 0.9 MG Venlafaxine Venlafaxine No 1{capsu QD Venlafaxin HCl ER 75 HCl ER 75 le_with e HCl ER MG MG _food} 75 MG Premarin Premarin No Premarin 0.9 MG 0.9 MG 0.9 MG hydroCHLORO hydroCHLORO No hydroCHLOR thiazide thiazide Othiazide 12.5 MG 12.5 MG 12.5 MG Aspirin 81 Aspirin 81 No 1{table QD Aspirin 81 t} Repaglinide Repaglinide No 2{table TID Repaglinid 2 MG 2 MG ts} e 2 MG ALPRAZolam ALPRAZolam No 1{table ALPRAZolam 0.5 MG 0.5 MG t} 0.5 MG Irbesartan- Irbesartan- No Irbesartan hydroCHLORO hydroCHLORO -hydroCHLO thiazide thiazide ROthiazide 150-12.5 MG 150-12.5 MG 150-12.5 MG Super B Super B No Super B Complex Complex Complex Maxi - Maxi - Maxi - Magnesium Magnesium No 1{table QD Magnesium 250 MG 250 MG t_with_ 250 MG a_meal} Magnesium Magnesium No 1{table QD Magnesium 250 MG 250 MG t_with_ 250 MG a_meal} Multivitami Multivitami No Multivitam n n in Super B Super B No Super B Complex Complex Complex Maxi - Maxi - Maxi - hydroCHLORO hydroCHLORO No 1{capsu QD hydroCHLOR thiazide thiazide le_in_t Othiazide 12.5 MG 12.5 MG he_morn 12.5 MG ing} Irbesartan- Irbesartan- No 1{table QD Irbesartan hydroCHLORO hydroCHLORO t} -hydroCHLO thiazide thiazide ROthiazide 150-12.5 MG 150-12.5 MG 150-12.5 MG Venlafaxine Venlafaxine No 1{capsu QD Venlafaxin HCl ER 75 HCl ER 75 le_with e HCl ER MG MG _food} 75 MG hydroCHLORO hydroCHLORO No hydroCHLOR thiazide thiazide Othiazide 12.5 MG 12.5 MG 12.5 MG Venlafaxine Venlafaxine No Venlafaxin HCl ER 150 HCl ER 150 e HCl ER MG MG 150 MG Venlafaxine Venlafaxine No 1{table QD Venlafaxin HCl 37.5 MG HCl 37.5 MG t_with_ e HCl 37.5 food} MG Repaglinide Repaglinide No 2{table TID Repaglinid 2 MG 2 MG ts} e 2 MG Repaglinide Repaglinide No Repaglinid 2 MG 2 MG e 2 MG ALPRAZolam ALPRAZolam No 1{table ALPRAZolam 0.5 MG 0.5 MG t} 0.5 MG Premarin Premarin No Premarin 0.9 MG 0.9 MG 0.9 MG Venlafaxine Venlafaxine No Venlafaxin HCl ER 37.5 HCl ER 37.5 e HCl ER MG MG 37.5 MG Irbesartan- Irbesartan- No Irbesartan hydroCHLORO hydroCHLORO -hydroCHLO thiazide thiazide ROthiazide 150-12.5 MG 150-12.5 MG 150-12.5 MG busPIRone busPIRone No busPIRone HCl 10 MG HCl 10 MG HCl 10 MG Multivitami Multivitami No Multivitam n n in Vitamin D Vitamin D No 1{table QD Vitamin D 1000 UNIT 1000 UNIT t} 1000 UNIT Aspirin 81 Aspirin 81 No 1{table QD Aspirin 81 t} Magnesium Magnesium No 1{table QD Magnesium 250 MG 250 MG t_with_ 250 MG a_meal} Multivitami Multivitami No Multivitam n n in Super B Super B No Super B Complex Complex Complex Maxi - Maxi - Maxi - hydroCHLORO hydroCHLORO No 1{capsu QD hydroCHLOR thiazide thiazide le_in_t Othiazide 12.5 MG 12.5 MG he_morn 12.5 MG ing} Irbesartan- Irbesartan- No 1{table QD Irbesartan hydroCHLORO hydroCHLORO t} -hydroCHLO thiazide thiazide ROthiazide 150-12.5 MG 150-12.5 MG 150-12.5 MG Venlafaxine Venlafaxine No 1{capsu QD Venlafaxin HCl ER 75 HCl ER 75 le_with e HCl ER MG MG _food} 75 MG hydroCHLORO hydroCHLORO No hydroCHLOR thiazide thiazide Othiazide 12.5 MG 12.5 MG 12.5 MG Venlafaxine Venlafaxine No Venlafaxin HCl ER 150 HCl ER 150 e HCl ER MG MG 150 MG Venlafaxine Venlafaxine No 1{table QD Venlafaxin HCl 37.5 MG HCl 37.5 MG t_with_ e HCl 37.5 food} MG Repaglinide Repaglinide No 2{table TID Repaglinid 2 MG 2 MG ts} e 2 MG Repaglinide Repaglinide No Repaglinid 2 MG 2 MG e 2 MG ALPRAZolam ALPRAZolam No 1{table ALPRAZolam 0.5 MG 0.5 MG t} 0.5 MG Premarin Premarin No Premarin 0.9 MG 0.9 MG 0.9 MG Venlafaxine Venlafaxine No Venlafaxin HCl ER 37.5 HCl ER 37.5 e HCl ER MG MG 37.5 MG Irbesartan- Irbesartan- No Irbesartan hydroCHLORO hydroCHLORO -hydroCHLO thiazide thiazide ROthiazide 150-12.5 MG 150-12.5 MG 150-12.5 MG busPIRone busPIRone No busPIRone HCl 10 MG HCl 10 MG HCl 10 MG Multivitami Multivitami No Multivitam n n in Vitamin D Vitamin D No 1{table QD Vitamin D 1000 UNIT 1000 UNIT t} 1000 UNIT Aspirin 81 Aspirin 81 No 1{table QD Aspirin 81 t} ALPRAZolam ALPRAZolam No 1{table ALPRAZolam 0.5 MG 0.5 MG t} 0.5 MG Venlafaxine Venlafaxine No 1{table QD Venlafaxin HCl 37.5 MG HCl 37.5 MG t_with_ e HCl 37.5 food} MG Magnesium Magnesium No 1{table QD Magnesium 250 MG 250 MG t_with_ 250 MG a_meal} Aspirin 81 Aspirin 81 No 1{table QD Aspirin 81 t} Multivitami Multivitami No Multivitam n n in Vitamin D Vitamin D No 1{table QD Vitamin D 1000 UNIT 1000 UNIT t} 1000 UNIT Repaglinide Repaglinide No Repaglinid 2 MG 2 MG e 2 MG hydroCHLORO hydroCHLORO No 1{capsu QD hydroCHLOR thiazide thiazide le_in_t Othiazide 12.5 MG 12.5 MG he_morn 12.5 MG ing} Premarin Premarin No Premarin 0.9 MG 0.9 MG 0.9 MG glipiZIDE glipiZIDE No 1{table QD glipiZIDE XL 2.5 MG XL 2.5 MG t_with_ XL 2.5 MG food} Irbesartan- Irbesartan- No Irbesartan hydroCHLORO hydroCHLORO -hydroCHLO thiazide thiazide ROthiazide 150-12.5 MG 150-12.5 MG 150-12.5 MG Irbesartan- Irbesartan- No 1{table QD Irbesartan hydroCHLORO hydroCHLORO t} -hydroCHLO thiazide thiazide ROthiazide 150-12.5 MG 150-12.5 MG 150-12.5 MG Venlafaxine Venlafaxine No Venlafaxin HCl ER 37.5 HCl ER 37.5 e HCl ER MG MG 37.5 MG Venlafaxine Venlafaxine No Venlafaxin HCl ER 150 HCl ER 150 e HCl ER MG MG 150 MG Premarin Premarin No 1{table Premarin 0.9 MG 0.9 MG t} 0.9 MG Repaglinide Repaglinide No 2{table TID Repaglinid 2 MG 2 MG ts} e 2 MG Multivitami Multivitami No Multivitam n n in Venlafaxine Venlafaxine No 1{capsu QD Venlafaxin HCl ER 150 HCl ER 150 le_with e HCl ER MG MG _food} 150 MG hydroCHLORO hydroCHLORO No hydroCHLOR thiazide thiazide Othiazide 12.5 MG 12.5 MG 12.5 MG Super B Super B No Super B Complex Complex Complex Maxi - Maxi - Maxi - busPIRone busPIRone No busPIRone HCl 10 MG HCl 10 MG HCl 10 MG ALPRAZolam ALPRAZolam No 1{table ALPRAZolam 0.5 MG 0.5 MG t} 0.5 MG Venlafaxine Venlafaxine No 1{table QD Venlafaxin HCl 37.5 MG HCl 37.5 MG t_with_ e HCl 37.5 food} MG Magnesium Magnesium No 1{table QD Magnesium 250 MG 250 MG t_with_ 250 MG a_meal} Aspirin 81 Aspirin 81 No 1{table QD Aspirin 81 t} Multivitami Multivitami No Multivitam n n in Vitamin D Vitamin D No 1{table QD Vitamin D 1000 UNIT 1000 UNIT t} 1000 UNIT Repaglinide Repaglinide No Repaglinid 2 MG 2 MG e 2 MG hydroCHLORO hydroCHLORO No 1{capsu QD hydroCHLOR thiazide thiazide le_in_t Othiazide 12.5 MG 12.5 MG he_morn 12.5 MG ing} Premarin Premarin No Premarin 0.9 MG 0.9 MG 0.9 MG glipiZIDE glipiZIDE No 1{table QD glipiZIDE XL 2.5 MG XL 2.5 MG t_with_ XL 2.5 MG food} Irbesartan- Irbesartan- No Irbesartan hydroCHLORO hydroCHLORO -hydroCHLO thiazide thiazide ROthiazide 150-12.5 MG 150-12.5 MG 150-12.5 MG Irbesartan- Irbesartan- No 1{table QD Irbesartan hydroCHLORO hydroCHLORO t} -hydroCHLO thiazide thiazide ROthiazide 150-12.5 MG 150-12.5 MG 150-12.5 MG Venlafaxine Venlafaxine No Venlafaxin HCl ER 37.5 HCl ER 37.5 e HCl ER MG MG 37.5 MG Venlafaxine Venlafaxine No Venlafaxin HCl ER 150 HCl ER 150 e HCl ER MG MG 150 MG Premarin Premarin No 1{table Premarin 0.9 MG 0.9 MG t} 0.9 MG Repaglinide Repaglinide No 2{table TID Repaglinid 2 MG 2 MG ts} e 2 MG Multivitami Multivitami No Multivitam n n in Venlafaxine Venlafaxine No 1{capsu QD Venlafaxin HCl ER 150 HCl ER 150 le_with e HCl ER MG MG _food} 150 MG hydroCHLORO hydroCHLORO No hydroCHLOR thiazide thiazide Othiazide 12.5 MG 12.5 MG 12.5 MG Super B Super B No Super B Complex Complex Complex Maxi - Maxi - Maxi - busPIRone busPIRone No busPIRone HCl 10 MG HCl 10 MG HCl 10 MG Premarin Premarin No Premarin 0.9 MG 0.9 MG 0.9 MG Venlafaxine Venlafaxine No Venlafaxin HCl ER 150 HCl ER 150 e HCl ER MG MG 150 MG Super B Super B No Super B Complex Complex Complex Maxi - Maxi - Maxi - busPIRone busPIRone No busPIRone HCl 10 MG HCl 10 MG HCl 10 MG Magnesium Magnesium No 1{table QD Magnesium 250 MG 250 MG t_with_ 250 MG a_meal} Multivitami Multivitami No Multivitam n n in Irbesartan- Irbesartan- No Irbesartan hydroCHLORO hydroCHLORO -hydroCHLO thiazide thiazide ROthiazide 150-12.5 MG 150-12.5 MG 150-12.5 MG Venlafaxine Venlafaxine No 1{table QD Venlafaxin HCl 37.5 MG HCl 37.5 MG t_with_ e HCl 37.5 food} MG Venlafaxine Venlafaxine No 1{capsu QD Venlafaxin HCl ER 150 HCl ER 150 le_with e HCl ER MG MG _food} 150 MG Repaglinide Repaglinide No Repaglinid 2 MG 2 MG e 2 MG ALPRAZolam ALPRAZolam No 1{table ALPRAZolam 0.5 MG 0.5 MG t} 0.5 MG Venlafaxine Venlafaxine No Venlafaxin HCl ER 37.5 HCl ER 37.5 e HCl ER MG MG 37.5 MG hydroCHLORO hydroCHLORO No 1{capsu QD hydroCHLOR thiazide thiazide le_in_t Othiazide 12.5 MG 12.5 MG he_morn 12.5 MG ing} glipiZIDE glipiZIDE No glipiZIDE ER 2.5 MG ER 2.5 MG ER 2.5 MG Premarin Premarin No 1{table Premarin 0.9 MG 0.9 MG t} 0.9 MG hydroCHLORO hydroCHLORO No hydroCHLOR thiazide thiazide Othiazide 12.5 MG 12.5 MG 12.5 MG Multivitami Multivitami No Multivitam n n in Aspirin 81 Aspirin 81 No 1{table QD Aspirin 81 t} Repaglinide Repaglinide No 2{table TID Repaglinid 2 MG 2 MG ts} e 2 MG Vitamin D Vitamin D No 1{table QD Vitamin D 1000 UNIT 1000 UNIT t} 1000 UNIT Irbesartan- Irbesartan- No 1{table QD Irbesartan hydroCHLORO hydroCHLORO t} -hydroCHLO thiazide thiazide ROthiazide 150-12.5 MG 150-12.5 MG 150-12.5 MG Premarin Premarin No Premarin 0.9 MG 0.9 MG 0.9 MG Venlafaxine Venlafaxine No Venlafaxin HCl ER 150 HCl ER 150 e HCl ER MG MG 150 MG Super B Super B No Super B Complex Complex Complex Maxi - Maxi - Maxi - busPIRone busPIRone No busPIRone HCl 10 MG HCl 10 MG HCl 10 MG Magnesium Magnesium No 1{table QD Magnesium 250 MG 250 MG t_with_ 250 MG a_meal} Multivitami Multivitami No Multivitam n n in Irbesartan- Irbesartan- No Irbesartan hydroCHLORO hydroCHLORO -hydroCHLO thiazide thiazide ROthiazide 150-12.5 MG 150-12.5 MG 150-12.5 MG Venlafaxine Venlafaxine No 1{table QD Venlafaxin HCl 37.5 MG HCl 37.5 MG t_with_ e HCl 37.5 food} MG Venlafaxine Venlafaxine No 1{capsu QD Venlafaxin HCl ER 150 HCl ER 150 le_with e HCl ER MG MG _food} 150 MG Repaglinide Repaglinide No Repaglinid 2 MG 2 MG e 2 MG ALPRAZolam ALPRAZolam No 1{table ALPRAZolam 0.5 MG 0.5 MG t} 0.5 MG Venlafaxine Venlafaxine No Venlafaxin HCl ER 37.5 HCl ER 37.5 e HCl ER MG MG 37.5 MG hydroCHLORO hydroCHLORO No 1{capsu QD hydroCHLOR thiazide thiazide le_in_t Othiazide 12.5 MG 12.5 MG he_morn 12.5 MG ing} glipiZIDE glipiZIDE No glipiZIDE ER 2.5 MG ER 2.5 MG ER 2.5 MG Premarin Premarin No 1{table Premarin 0.9 MG 0.9 MG t} 0.9 MG hydroCHLORO hydroCHLORO No hydroCHLOR thiazide thiazide Othiazide 12.5 MG 12.5 MG 12.5 MG Multivitami Multivitami No Multivitam n n in Aspirin 81 Aspirin 81 No 1{table QD Aspirin 81 t} Repaglinide Repaglinide No 2{table TID Repaglinid 2 MG 2 MG ts} e 2 MG Vitamin D Vitamin D No 1{table QD Vitamin D 1000 UNIT 1000 UNIT t} 1000 UNIT Irbesartan- Irbesartan- No 1{table QD Irbesartan hydroCHLORO hydroCHLORO t} -hydroCHLO thiazide thiazide ROthiazide 150-12.5 MG 150-12.5 MG 150-12.5 MG Premarin Premarin No Premarin 0.9 MG 0.9 MG 0.9 MG Venlafaxine Venlafaxine No Venlafaxin HCl ER 150 HCl ER 150 e HCl ER MG MG 150 MG Super B Super B No Super B Complex Complex Complex Maxi - Maxi - Maxi - busPIRone busPIRone No busPIRone HCl 10 MG HCl 10 MG HCl 10 MG Magnesium Magnesium No 1{table QD Magnesium 250 MG 250 MG t_with_ 250 MG a_meal} Multivitami Multivitami No Multivitam n n in Irbesartan- Irbesartan- No Irbesartan hydroCHLORO hydroCHLORO -hydroCHLO thiazide thiazide ROthiazide 150-12.5 MG 150-12.5 MG 150-12.5 MG Venlafaxine Venlafaxine No 1{table QD Venlafaxin HCl 37.5 MG HCl 37.5 MG t_with_ e HCl 37.5 food} MG Venlafaxine Venlafaxine No 1{capsu QD Venlafaxin HCl ER 150 HCl ER 150 le_with e HCl ER MG MG _food} 150 MG Repaglinide Repaglinide No Repaglinid 2 MG 2 MG e 2 MG ALPRAZolam ALPRAZolam No 1{table ALPRAZolam 0.5 MG 0.5 MG t} 0.5 MG Venlafaxine Venlafaxine No Venlafaxin HCl ER 37.5 HCl ER 37.5 e HCl ER MG MG 37.5 MG hydroCHLORO hydroCHLORO No 1{capsu QD hydroCHLOR thiazide thiazide le_in_t Othiazide 12.5 MG 12.5 MG he_morn 12.5 MG ing} glipiZIDE glipiZIDE No glipiZIDE ER 2.5 MG ER 2.5 MG ER 2.5 MG Premarin Premarin No 1{table Premarin 0.9 MG 0.9 MG t} 0.9 MG hydroCHLORO hydroCHLORO No hydroCHLOR thiazide thiazide Othiazide 12.5 MG 12.5 MG 12.5 MG Multivitami Multivitami No Multivitam n n in Aspirin 81 Aspirin 81 No 1{table QD Aspirin 81 t} Repaglinide Repaglinide No 2{table TID Repaglinid 2 MG 2 MG ts} e 2 MG Vitamin D Vitamin D No 1{table QD Vitamin D 1000 UNIT 1000 UNIT t} 1000 UNIT Irbesartan- Irbesartan- No 1{table QD Irbesartan hydroCHLORO hydroCHLORO t} -hydroCHLO thiazide thiazide ROthiazide 150-12.5 MG 150-12.5 MG 150-12.5 MG Repaglinide Repaglinide No Repaglinid 2 MG 2 MG e 2 MG Venlafaxine Venlafaxine No Venlafaxin HCl ER 150 HCl ER 150 e HCl ER MG MG 150 MG hydroCHLORO hydroCHLORO No 1{capsu QD hydroCHLOR thiazide thiazide le_in_t Othiazide 12.5 MG 12.5 MG he_morn 12.5 MG ing} Aspirin 81 Aspirin 81 No 1{table QD Aspirin 81 t} Super B Super B No Super B Complex Complex Complex Maxi - Maxi - Maxi - hydroCHLORO hydroCHLORO No hydroCHLOR thiazide thiazide Othiazide 12.5 MG 12.5 MG 12.5 MG Premarin Premarin No 1{table Premarin 0.9 MG 0.9 MG t} 0.9 MG Irbesartan- Irbesartan- No Irbesartan hydroCHLORO hydroCHLORO -hydroCHLO thiazide thiazide ROthiazide 150-12.5 MG 150-12.5 MG 150-12.5 MG glipiZIDE glipiZIDE No glipiZIDE ER 2.5 MG ER 2.5 MG ER 2.5 MG Vitamin D Vitamin D No 1{table QD Vitamin D 1000 UNIT 1000 UNIT t} 1000 UNIT Venlafaxine Venlafaxine No 1{table QD Venlafaxin HCl 37.5 MG HCl 37.5 MG t_with_ e HCl 37.5 food} MG Magnesium Magnesium No 1{table QD Magnesium 250 MG 250 MG t_with_ 250 MG a_meal} Venlafaxine Venlafaxine No Venlafaxin HCl ER 37.5 HCl ER 37.5 e HCl ER MG MG 37.5 MG Multivitami Multivitami No Multivitam n n in ALPRAZolam ALPRAZolam No 1{table ALPRAZolam 0.5 MG 0.5 MG t} 0.5 MG Mounjaro 5 Mounjaro 5 No M[place]jaro 5 MG/0.5ML MG/0.5ML MG/0.5ML Multivitami Multivitami No Multivitam n n in Irbesartan- Irbesartan- No 1{table QD Irbesartan hydroCHLORO hydroCHLORO t} -hydroCHLO thiazide thiazide ROthiazide 150-12.5 MG 150-12.5 MG 150-12.5 MG busPIRone busPIRone No busPIRone HCl 10 MG HCl 10 MG HCl 10 MG Premarin Premarin No Premarin 0.9 MG 0.9 MG 0.9 MG Venlafaxine Venlafaxine No 1{capsu QD Venlafaxin HCl ER 150 HCl ER 150 le_with e HCl ER MG MG _food} 150 MG Repaglinide Repaglinide No Repaglinid 2 MG 2 MG e 2 MG Venlafaxine Venlafaxine No Venlafaxin HCl ER 150 HCl ER 150 e HCl ER MG MG 150 MG hydroCHLORO hydroCHLORO No 1{capsu QD hydroCHLOR thiazide thiazide le_in_t Othiazide 12.5 MG 12.5 MG he_morn 12.5 MG ing} Aspirin 81 Aspirin 81 No 1{table QD Aspirin 81 t} Super B Super B No Super B Complex Complex Complex Maxi - Maxi - Maxi - hydroCHLORO hydroCHLORO No hydroCHLOR thiazide thiazide Othiazide 12.5 MG 12.5 MG 12.5 MG Premarin Premarin No 1{table Premarin 0.9 MG 0.9 MG t} 0.9 MG Irbesartan- Irbesartan- No Irbesartan hydroCHLORO hydroCHLORO -hydroCHLO thiazide thiazide ROthiazide 150-12.5 MG 150-12.5 MG 150-12.5 MG glipiZIDE glipiZIDE No glipiZIDE ER 2.5 MG ER 2.5 MG ER 2.5 MG Vitamin D Vitamin D No 1{table QD Vitamin D 1000 UNIT 1000 UNIT t} 1000 UNIT Venlafaxine Venlafaxine No 1{table QD Venlafaxin HCl 37.5 MG HCl 37.5 MG t_with_ e HCl 37.5 food} MG Magnesium Magnesium No 1{table QD Magnesium 250 MG 250 MG t_with_ 250 MG a_meal} Venlafaxine Venlafaxine No Venlafaxin HCl ER 37.5 HCl ER 37.5 e HCl ER MG MG 37.5 MG Multivitami Multivitami No Multivitam n n in ALPRAZolam ALPRAZolam No 1{table ALPRAZolam 0.5 MG 0.5 MG t} 0.5 MG Mounjaro 5 Mounjaro 5 No Mounjaro 5 MG/0.5ML MG/0.5ML MG/0.5ML Multivitami Multivitami No Multivitam n n in Irbesartan- Irbesartan- No 1{table QD Irbesartan hydroCHLORO hydroCHLORO t} -hydroCHLO thiazide thiazide ROthiazide 150-12.5 MG 150-12.5 MG 150-12.5 MG busPIRone busPIRone No busPIRone HCl 10 MG HCl 10 MG HCl 10 MG Premarin Premarin No Premarin 0.9 MG 0.9 MG 0.9 MG Venlafaxine Venlafaxine No 1{capsu QD Venlafaxin HCl ER 150 HCl ER 150 le_with e HCl ER MG MG _food} 150 MG ALPRAZolam ALPRAZolam No 1{table ALPRAZolam 0.5 MG 0.5 MG t} 0.5 MG busPIRone busPIRone No busPIRone HCl 10 MG HCl 10 MG HCl 10 MG hydroCHLORO hydroCHLORO No 1{capsu QD hydroCHLOR thiazide thiazide le_in_t Othiazide 12.5 MG 12.5 MG he_morn 12.5 MG ing} Venlafaxine Venlafaxine No 1{capsu QD Venlafaxin HCl ER 150 HCl ER 150 le_with e HCl ER MG MG _food} 150 MG Irbesartan- Irbesartan- No 1{table QD Irbesartan hydroCHLORO hydroCHLORO t} -hydroCHLO thiazide thiazide ROthiazide 150-12.5 MG 150-12.5 MG 150-12.5 MG Venlafaxine Venlafaxine No 1{table QD Venlafaxin HCl 37.5 MG HCl 37.5 MG t_with_ e HCl 37.5 food} MG Super B Super B No Super B Complex Complex Complex Maxi - Maxi - Maxi - Vitamin D Vitamin D No 1{table QD Vitamin D 1000 UNIT 1000 UNIT t} 1000 UNIT hydroCHLORO hydroCHLORO No hydroCHLOR thiazide thiazide Othiazide 12.5 MG 12.5 MG 12.5 MG Mounjaro 5 Mounjaro 5 No Mounjaro 5 MG/0.5ML MG/0.5ML MG/0.5ML glipiZIDE glipiZIDE No glipiZIDE ER 2.5 MG ER 2.5 MG ER 2.5 MG Venlafaxine Venlafaxine No Venlafaxin HCl ER 150 HCl ER 150 e HCl ER MG MG 150 MG Venlafaxine Venlafaxine No 1{capsu QD Venlafaxin HCl ER 150 HCl ER 150 le_with e HCl ER MG MG _food} 150 MG Multivitami Multivitami No Multivitam n n in Irbesartan- Irbesartan- No Irbesartan hydroCHLORO hydroCHLORO -hydroCHLO thiazide thiazide ROthiazide 150-12.5 MG 150-12.5 MG 150-12.5 MG Premarin Premarin No 1{table Premarin 0.9 MG 0.9 MG t} 0.9 MG Premarin Premarin No Premarin 0.9 MG 0.9 MG 0.9 MG Multivitami Multivitami No Multivitam n n in Magnesium Magnesium No 1{table QD Magnesium 250 MG 250 MG t_with_ 250 MG a_meal} Repaglinide Repaglinide No Repaglinid 2 MG 2 MG e 2 MG Aspirin 81 Aspirin 81 No 1{table QD Aspirin 81 t} Premarin Premarin No Premarin 0.9 MG 0.9 MG 0.9 MG Venlafaxine Venlafaxine No Venlafaxin HCl ER 150 HCl ER 150 e HCl ER MG MG 150 MG ALPRAZolam ALPRAZolam No 1{table ALPRAZolam 0.5 MG 0.5 MG t} 0.5 MG busPIRone busPIRone No busPIRone HCl 10 MG HCl 10 MG HCl 10 MG hydroCHLORO hydroCHLORO No 1{capsu QD hydroCHLOR thiazide thiazide le_in_t Othiazide 12.5 MG 12.5 MG he_morn 12.5 MG ing} Venlafaxine Venlafaxine No 1{capsu QD Venlafaxin HCl ER 150 HCl ER 150 le_with e HCl ER MG MG _food} 150 MG Super B Super B No Super B Complex Complex Complex Maxi - Maxi - Maxi - Irbesartan- Irbesartan- No 1{table QD Irbesartan hydroCHLORO hydroCHLORO t} -hydroCHLO thiazide thiazide ROthiazide 150-12.5 MG 150-12.5 MG 150-12.5 MG Venlafaxine Venlafaxine No 1{table QD Venlafaxin HCl 37.5 MG HCl 37.5 MG t_with_ e HCl 37.5 food} MG Super B Super B No Super B Complex Complex Complex Maxi - Maxi - Maxi - Vitamin D Vitamin D No 1{table QD Vitamin D 1000 UNIT 1000 UNIT t} 1000 UNIT hydroCHLORO hydroCHLORO No hydroCHLOR thiazide thiazide Othiazide 12.5 MG 12.5 MG 12.5 MG Mounjaro 5 Mounjaro 5 No Mounjaro 5 MG/0.5ML MG/0.5ML MG/0.5ML glipiZIDE glipiZIDE No glipiZIDE ER 2.5 MG ER 2.5 MG ER 2.5 MG Venlafaxine Venlafaxine No Venlafaxin HCl ER 150 HCl ER 150 e HCl ER MG MG 150 MG Venlafaxine Venlafaxine No 1{capsu QD Venlafaxin HCl ER 150 HCl ER 150 le_with e HCl ER MG MG _food} 150 MG busPIRone busPIRone No busPIRone HCl 10 MG HCl 10 MG HCl 10 MG Multivitami Multivitami No Multivitam n n in Irbesartan- Irbesartan- No Irbesartan hydroCHLORO hydroCHLORO -hydroCHLO thiazide thiazide ROthiazide 150-12.5 MG 150-12.5 MG 150-12.5 MG Premarin Premarin No 1{table Premarin 0.9 MG 0.9 MG t} 0.9 MG Premarin Premarin No Premarin 0.9 MG 0.9 MG 0.9 MG Multivitami Multivitami No Multivitam n n in Magnesium Magnesium No 1{table QD Magnesium 250 MG 250 MG t_with_ 250 MG a_meal} Repaglinide Repaglinide No Repaglinid 2 MG 2 MG e 2 MG Aspirin 81 Aspirin 81 No 1{table QD Aspirin 81 t} Magnesium Magnesium No 1{table QD Magnesium 250 MG 250 MG t_with_ 250 MG a_meal} ALPRAZolam ALPRAZolam No 1{table ALPRAZolam 0.5 MG 0.5 MG t} 0.5 MG Multivitami Multivitami No Multivitam n n in busPIRone busPIRone No busPIRone HCl 10 MG HCl 10 MG HCl 10 MG hydroCHLORO hydroCHLORO No 1{capsu QD hydroCHLOR thiazide thiazide le_in_t Othiazide 12.5 MG 12.5 MG he_morn 12.5 MG ing} Venlafaxine Venlafaxine No 1{capsu QD Venlafaxin HCl ER 150 HCl ER 150 le_with e HCl ER MG MG _food} 150 MG Irbesartan- Irbesartan- No 1{table QD Irbesartan hydroCHLORO hydroCHLORO t} -hydroCHLO thiazide thiazide ROthiazide 150-12.5 MG 150-12.5 MG 150-12.5 MG Venlafaxine Venlafaxine No 1{table QD Venlafaxin HCl 37.5 MG HCl 37.5 MG t_with_ e HCl 37.5 food} MG Super B Super B No Super B Complex Complex Complex Maxi - Maxi - Maxi - Vitamin D Vitamin D No 1{table QD Vitamin D 1000 UNIT 1000 UNIT t} 1000 UNIT hydroCHLORO hydroCHLORO No hydroCHLOR thiazide thiazide Othiazide 12.5 MG 12.5 MG 12.5 MG Mounjaro 5 Mounjaro 5 No Mounjaro 5 MG/0.5ML MG/0.5ML MG/0.5ML glipiZIDE glipiZIDE No glipiZIDE ER 2.5 MG ER 2.5 MG ER 2.5 MG Irbesartan- Irbesartan- No Irbesartan hydroCHLORO hydroCHLORO -hydroCHLO thiazide thiazide ROthiazide 150-12.5 MG 150-12.5 MG 150-12.5 MG Venlafaxine Venlafaxine No Venlafaxin HCl ER 150 HCl ER 150 e HCl ER MG MG 150 MG Venlafaxine Venlafaxine No 1{capsu QD Venlafaxin HCl ER 150 HCl ER 150 le_with e HCl ER MG MG _food} 150 MG Multivitami Multivitami No Multivitam n n in Irbesartan- Irbesartan- No Irbesartan hydroCHLORO hydroCHLORO -hydroCHLO thiazide thiazide ROthiazide 150-12.5 MG 150-12.5 MG 150-12.5 MG Premarin Premarin No 1{table Premarin 0.9 MG 0.9 MG t} 0.9 MG Premarin Premarin No Premarin 0.9 MG 0.9 MG 0.9 MG Multivitami Multivitami No Multivitam n n in Magnesium Magnesium No 1{table QD Magnesium 250 MG 250 MG t_with_ 250 MG a_meal} Repaglinide Repaglinide No Repaglinid 2 MG 2 MG e 2 MG Venlafaxine Venlafaxine No 1{table QD Venlafaxin HCl 37.5 MG HCl 37.5 MG t_with_ e HCl 37.5 food} MG Aspirin 81 Aspirin 81 No 1{table QD Aspirin 81 t} Venlafaxine Venlafaxine No 1{capsu QD Venlafaxin HCl ER 150 HCl ER 150 le_with e HCl ER MG MG _food} 150 MG Repaglinide Repaglinide No Repaglinid 2 MG 2 MG e 2 MG Repaglinide Repaglinide No Repaglinid 2 MG 2 MG e 2 MG Premarin Premarin No 1{table Premarin 0.9 MG 0.9 MG t} 0.9 MG glipiZIDE glipiZIDE No glipiZIDE ER 2.5 MG ER 2.5 MG ER 2.5 MG Venlafaxine Venlafaxine No 1{capsu QD Venlafaxin HCl ER 150 HCl ER 150 le_with e HCl ER MG MG _food} 150 MG Venlafaxine Venlafaxine No 1{capsu QD Venlafaxin HCl ER 150 HCl ER 150 le_with e HCl ER MG MG _food} 150 MG Venlafaxine Venlafaxine No Venlafaxin HCl ER 150 HCl ER 150 e HCl ER MG MG 150 MG hydroCHLORO hydroCHLORO No hydroCHLOR thiazide thiazide Othiazide 12.5 MG 12.5 MG 12.5 MG Magnesium Magnesium No 1{table QD Magnesium 250 MG 250 MG t_with_ 250 MG a_meal} ALPRAZolam ALPRAZolam No 1{table ALPRAZolam 0.5 MG 0.5 MG t} 0.5 MG ALPRAZolam ALPRAZolam No 1{table ALPRAZolam 0.5 MG 0.5 MG t} 0.5 MG Super B Super B No Super B Complex Complex Complex Maxi - Maxi - Maxi - Irbesartan- Irbesartan- No Irbesartan hydroCHLORO hydroCHLORO -hydroCHLO thiazide thiazide ROthiazide 150-12.5 MG 150-12.5 MG 150-12.5 MG Venlafaxine Venlafaxine No 1{table QD Venlafaxin HCl 37.5 MG HCl 37.5 MG t_with_ e HCl 37.5 food} MG Premarin Premarin No Premarin 0.9 MG 0.9 MG 0.9 MG Multivitami Multivitami No Multivitam n n in Irbesartan- Irbesartan- No 1{table QD Irbesartan hydroCHLORO hydroCHLORO t} -hydroCHLO thiazide thiazide ROthiazide 150-12.5 MG 150-12.5 MG 150-12.5 MG Aspirin 81 Aspirin 81 No 1{table QD Aspirin 81 t} Vitamin D Vitamin D No 1{table QD Vitamin D 1000 UNIT 1000 UNIT t} 1000 UNIT Mounjaro 5 Mounjaro 5 No Mounjaro 5 MG/0.5ML MG/0.5ML MG/0.5ML hydroCHLORO hydroCHLORO No 1{capsu QD hydroCHLOR thiazide thiazide le_in_t Othiazide 12.5 MG 12.5 MG he_morn 12.5 MG ing} Multivitami Multivitami No Multivitam n n in busPIRone busPIRone No busPIRone HCl 10 MG HCl 10 MG HCl 10 MG Venlafaxine Venlafaxine No Venlafaxin HCl ER 37.5 HCl ER 37.5 e HCl ER MG MG 37.5 MG hydroCHLORO hydroCHLORO No 1{capsu QD hydroCHLOR thiazide thiazide le_in_t Othiazide 12.5 MG 12.5 MG he_morn 12.5 MG ing} glipiZIDE glipiZIDE No glipiZIDE ER 2.5 MG ER 2.5 MG ER 2.5 MG busPIRone busPIRone No busPIRone HCl 10 MG HCl 10 MG HCl 10 MG Premarin Premarin No 1{table Premarin 0.9 MG 0.9 MG t} 0.9 MG Irbesartan- Irbesartan- No Irbesartan hydroCHLORO hydroCHLORO -hydroCHLO thiazide thiazide ROthiazide 150-12.5 MG 150-12.5 MG 150-12.5 MG Venlafaxine Venlafaxine No Venlafaxin HCl ER 150 HCl ER 150 e HCl ER MG MG 150 MG Venlafaxine Venlafaxine No 1{capsu QD Venlafaxin HCl ER 150 HCl ER 150 le_with e HCl ER MG MG _food} 150 MG ALPRAZolam ALPRAZolam No 1{table ALPRAZolam 0.5 MG 0.5 MG t} 0.5 MG Super B Super B No Super B Complex Complex Complex Maxi - Maxi - Maxi - Magnesium Magnesium No 1{table QD Magnesium 250 MG 250 MG t_with_ 250 MG a_meal} Premarin Premarin No Premarin 0.9 MG 0.9 MG 0.9 MG Repaglinide Repaglinide No BID Repaglinid 1 MG 1 MG e 1 MG Multivitami Multivitami No Multivitam n n in Vitamin D Vitamin D No 1{table QD Vitamin D 1000 UNIT 1000 UNIT t} 1000 UNIT hydroCHLORO hydroCHLORO No hydroCHLOR thiazide thiazide Othiazide 12.5 MG 12.5 MG 12.5 MG Aspirin 81 Aspirin 81 No 1{table QD Aspirin 81 t} Venlafaxine Venlafaxine No 1{table QD Venlafaxin HCl 37.5 MG HCl 37.5 MG t_with_ e HCl 37.5 food} MG Mounjaro 5 Mounjaro 5 No Mounjaro 5 MG/0.5ML MG/0.5ML MG/0.5ML Venlafaxine Venlafaxine No 1{capsu QD Venlafaxin HCl ER 150 HCl ER 150 le_with e HCl ER MG MG _food} 150 MG Multivitami Multivitami No Multivitam n n in Immunizations Ordered Immunization Filled Immunization Date Status Commen ts Source Name Name Flucelvax - single Flucelvax - single 2022-02-08 Completed [facility] dose syringe dose syringe 17:15:00 - [facility] Flucelvax - single Flucelvax - single 2022-02-08 Completed [facility] dose syringe dose syringe 17:15:00 - [facility] Flucelvax - single Flucelvax - single 2022-02-08 Completed [facility] dose syringe dose syringe 17:15:00 - [facility] Flucelvax - single Flucelvax - single 2022-02-08 Completed [facility] dose syringe dose syringe 17:15:00 - [facility] Flucelvax - single Flucelvax - single 2022-02-08 Completed [facility] dose syringe dose syringe 17:15:00 - [facility] Flucelvax - single Flucelvax - single 2022-02-08 Completed [facility] dose syringe dose syringe 17:15:00 - [facility] Flucelvax - single Flucelvax - single 2022-02-08 Completed [facility] dose syringe dose syringe 17:15:00 - [facility] Flucelvax - single Flucelvax - single 2022-02-08 Completed [facility] dose syringe dose syringe 17:15:00 - [facility] Flucelvax - single Flucelvax - single 2022-02-08 Completed [facility] dose syringe dose syringe 17:15:00 - [facility] Flucelvax - single Flucelvax - single 2022-02-08 Completed [facility] dose syringe dose syringe 17:15:00 - [facility] Flucelvax - single Flucelvax - single 2022-02-08 Completed [facility] dose syringe dose syringe 17:15:00 - [facility] Flucelvax - single Flucelvax - single 2022-02-08 Completed [facility] dose syringe dose syringe 17:15:00 - [facility] Flucelvax - single Flucelvax - single 2022-02-08 Completed [facility] dose syringe dose syringe 17:15:00 - [facility] Flucelvax - single Flucelvax - single 2022-02-08 Completed [facility] dose syringe dose syringe 17:15:00 - [facility] Afluria Afluria 2021-04-22 Completed [facility] 16:22:00 - [facility] COVID-19 Vaccine COVID-19 Vaccine 2021-04-22 Com[facility] (John) 16:22:00 [facility] Afluria Afluria 2021-04-22 Completed [facility] 16:22:00 - [facility] COVID-19 Vaccine COVID-19 Vaccine 2021-04-22 Completed [facility] (John) (John) 16:22:00 - [facility] Afluria Afluria 2021-04-22 Completed [facility] 16:22:00 - [facility] COVID-19 Vaccine COVID-19 Vaccine 2021-04-22 Completed [facility] (John) (John) 16:22:00 - [facility] Afluria Afluria 2021-04-22 Completed [facility] 16:22:00 - [facility] COVID-19 Vaccine COVID-19 Vaccine 2021-04-22 Completed [facility] (John) (John) 16:22:00 - [facility] Afluria Afluria 2021-04-22 Completed [facility] 16:22:00 - [facility] COVID-19 Vaccine COVID-19 Vaccine 2021-04-22 Completed [facility] (Ojhn) (John) 16:22:00 - [facility] Afluria Afluria 2021-04-22 Completed [facility] 16:22:00 - [facility] COVID-19 Vaccine COVID-19 Vaccine 2021-04-22 Completed [facility] (John) (John) 16:22:00 - [facility] Afluria Afluria 2021-04-22 Completed [facility] 16:22:00 - [facility] COVID-19 Vaccine COVID-19 Vaccine 2021-04-22 Completed [facility] (John) (John) 16:22:00 - [facility] Afluria Afluria 2021-04-22 Completed [facility] 16:22:00 - [facility] COVID-19 Vaccine COVID-19 Vaccine 2021-04-22 Completed [facility] (John) (John) 16:22:00 - [facility] Afluria Afluria 2021-04-22 Completed [facility] 16:22:00 - [facility] COVID-19 Vaccine COVID-19 Vaccine 2021-04-22 Completed [facility] (John) (John) 16:22:00 - [facility] Afluria Afluria 2021-04-22 Completed [facility] 16:22:00 - [facility] COVID-19 Vaccine COVID-19 Vaccine 2021-04-22 Completed [facility] (John) (John) 16:22:00 - [facility] Afluria Afluria 2021-04-22 Completed [facility] 16:22:00 - [facility] COVID-19 Vaccine COVID-19 Vaccine 2021-04-22 Completed [facility] (John) (John) 16:22:00 - [facility] Afluria Afluria 2021-04-22 Completed [facility] 16:22:00 - [facility] COVID-19 Vaccine COVID-19 Vaccine 2021-04-22 Completed [facility] (John) (John) 16:22:00 - [facility] Afluria Afluria 2021-04-22 Completed [facility] 16:22:00 - [facility] COVID-19 Vaccine COVID-19 Vaccine 2021-04-22 Completed [facility] (John) (John) 16:22:00 - [facility] Afluria Afluria 2021-04-22 Completed [facility] 16:22:00 - [facility] COVID-19 Vaccine COVID-19 Vaccine 2021-04-22 Completed [facility] (John) (John) 16:22:00 - [facility] Afluria Afluria 2021-04-22 Completed [facility] 16:22:00 - [facility] COVID-19 Vaccine COVID-19 Vaccine 2021-04-22 Completed [facility] (John) (John) 16:22:00 - [facility] Afluria Afluria 2021-04-22 Completed [facility] 16:22:00 - [facility] COVID-19 Vaccine COVID-19 Vaccine 2021-04-22 Completed [facility] (John) (John) 16:22:00 - [facility] Afluria Afluria 2021-04-22 Completed [facility] 16:22:00 - [facility] COVID-19 Vaccine COVID-19 Vaccine 2021-04-22 Completed [facility] (John) (John) 16:22:00 - [facility] Afluria Afluria 2021-04-22 Completed [facility] 16:22:00 - [facility] COVID-19 Vaccine COVID-19 Vaccine 2021-04-22 Completed [facility] (John) (John) 16:22:00 - [facility] Afluria Afluria 2021-04-22 Completed [facility] 16:22:00 - [facility] COVID-19 Vaccine COVID-19 Vaccine 2021-04-22 Completed [facility] (John) (John) 16:22:00 - [facility] Afluria Afluria 2021-04-22 Completed [facility] 16:22:00 - [facility] COVID-19 Vaccine COVID-19 Vaccine 2021-04-22 Completed [facility] (John) (John) 16:22:00 - [facility] Afluria Afluria 2021-04-22 Completed [facility] 16:22:00 - [facility] COVID-19 Vaccine COVID-19 Vaccine 2021-04-22 Completed [facility] (John) (John) 16:22:00 - [facility] Afluria Afluria 2021-04-22 Completed [facility] 16:22:00 - [facility] COVID-19 Vaccine COVID-19 Vaccine 2021-04-22 Completed [facility] (John) (John) 16:22:00 - [facility] COVID-19 Vaccine COVID-19 Vaccine 2021-04-22 Completed [facility] (John) (John) 08:39:00 - [facility] COVID-19 Vaccine COVID-19 Vaccine 2021-04-22 Completed [facility] (John) (John) 08:39:00 [facility] COVID-19 Vaccine COVID-19 Vaccine 2021-04-22 Completed [facility] (John) (John) 08:39:00 [facility] COVID-19 Vaccine COVID-19 Vaccine 2021-04-22 Completed [facility] (John) (John) 08:39:00 [facility] COVID-19 Vaccine COVID-19 Vaccine 2021-04-22 Completed [facility] (John) (John) 08:39:00 - [facility] COVID-19 Vaccine COVID-19 Vaccine 2021-04-22 Completed [facility] (John) (John) 08:39:00 - [facility] COVID-19 Vaccine COVID-19 Vaccine 2021-04-22 Completed [facility] (John) (John) 08:39:00 - [facility] COVID-19 Vaccine COVID-19 Vaccine 2021-04-22 Completed [facility] (John) (John) 08:39:00 - [facility] COVID-19 Vaccine COVID-19 Vaccine 2021-04-22 Completed [facility] (John) (John) 08:39:00 - [facility] COVID-19 Vaccine COVID-19 Vaccine 2021-04-22 Completed [facility] (John) (John) 08:39:00 - [facility] COVID-19 Vaccine COVID-19 Vaccine 2021-04-22 Completed [facility] (John) (John) 08:39:00 - [facility] COVID-19 Vaccine COVID-19 Vaccine 2021-04-22 Completed [facility] (John) (John) 08:39:00 - [facility] COVID-19 Vaccine COVID-19 Vaccine 2021-04-22 Completed [facility] (John) (John) 08:39:00 - [facility] COVID-19 Vaccine COVID-19 Vaccine 2021-04-22 Completed [facility] (John) (John) 08:39:00 - [facility] COVID-19 Vaccine COVID-19 Vaccine 2021-04-22 Completed [facility] (John) (John) 08:39:00 - [facility] COVID-19 Vaccine COVID-19 Vaccine 2021-04-22 Completed [facility] (John) (John) 08:39:00 - [facility] COVID-19 Vaccine COVID-19 Vaccine 2021-04-22 Completed [facility] (John) (John) 08:39:00 - [facility] COVID-19 Vaccine COVID-19 Vaccine 2021-04-22 Completed [facility] (John) (John) 08:39:00 - [facility] COVID-19 Vaccine COVID-19 Vaccine 2021-04-22 Completed [facility] (John) (John) 08:39:00 - [facility] COVID-19 Vaccine COVID-19 Vaccine 2021-04-22 Completed [facility] (John) (John) 08:39:00 - [facility] COVID-19 Vaccine COVID-19 Vaccine 2021-04-22 Completed [facility] (John) (John) 08:39:00 - [facility] COVID-19 Vaccine COVID-19 Vaccine 2021-04-22 Completed [facility] (John) (John) 08:39:00 [facility] COVID-19 Vaccine COVID-19 Vaccine 2020-08-13 Completed [facility] (John) (John) 14:08:00 [facility] COVID-19 Vaccine COVID-19 Vaccine 2020-08-13 Completed [facility] (John) (John) 14:08:00 [facility] COVID-19 Vaccine COVID-19 Vaccine 2020-08-13 Completed [facility] (John) (John) 14:08:00 [facility] COVID-19 Vaccine COVID-19 Vaccine 2020-08-13 Completed [facility] (John) (John) 14:08:00 [facility] COVID-19 Vaccine COVID-19 Vaccine 2020-08-13 Completed [facility] (John) (John) 14:08:00 [facility] COVID-19 Vaccine COVID-19 Vaccine 2020-08-13 Completed [facility] (John) (John) 14:08:00 [facility] COVID-19 Vaccine COVID-19 Vaccine 2020-08-13 Completed [facility] (John) (Jhon) 14:08:00 [facility] COVID-19 Vaccine COVID-19 Vaccine 2020-08-13 Completed [facility] (John) (John) 14:08:00 [facility] COVID-19 Vaccine COVID-19 Vaccine 2020-08-13 Completed [facility] (John) (John) 14:08:00 - [facility] COVID-19 Vaccine COVID-19 Vaccine 2020-08-13 Completed [facility] (John) (John) 14:08:00 - [facility] COVID-19 Vaccine COVID-19 Vaccine 2020-08-13 Completed [facility] (John) (John) 14:08:00 - [facility] COVID-19 Vaccine COVID-19 Vaccine 2020-08-13 Completed [facility] (John) (John) 14:08:00 [facility] COVID-19 Vaccine COVID-19 Vaccine 2020-08-13 Completed [facility] (John) (John) 14:08:00 [facility] COVID-19 Vaccine COVID-19 Vaccine 2020-08-13 Completed [facility] (John) (John) 14:08:00 - [facility] COVID-19 Vaccine COVID-19 Vaccine 2020-08-13 Completed [facility] (John) (John) 14:08:00 [facility] COVID-19 Vaccine COVID-19 Vaccine 2020-08-13 Completed [facility] (John) (John) 14:08:00 [facility] COVID-19 Vaccine COVID-19 Vaccine 2020-08-13 Completed [facility] (John) (John) 14:08:00 [facility] COVID-19 Vaccine COVID-19 Vaccine 2020-08-13 Completed [facility] (John) (John) 14:08:00 [facility] COVID-19 Vaccine COVID-19 Vaccine 2020-08-13 Completed [facility] (John) (John) 14:08:00 [facility] COVID-19 Vaccine COVID-19 Vaccine 2020-08-13 Completed [facility] (John) (John) 14:08:00 [facility] COVID-19 Vaccine COVID-19 Vaccine 2020-08-13 Completed [facility] (John) (John) 14:08:00 - [facility] COVID-19 Vaccine COVID-19 Vaccine 2020-08-13 Completed [facility] (John) (John) 14:08:00 [facility] COVID-19 Vaccine COVID-19 Vaccine 2020-08-13 Completed [facility] (John) (John) 14:08:00 - [facility] COVID-19 Vaccine COVID-19 Vaccine 2020-08-13 Completed [facility] (John) (John) 14:08:00 [facility] Afluria single dose Afluria single dose 2020-03-02 Completed [facility] 13:07:00 [facility] Afluria single dose Afluria single dose 2020-03-02 Completed [facility] 13:07:00 [facility] Afluria single dose Afluria single dose 2020-03-02 Completed [facility] 13:07:00 [facility] Afluria single dose Afluria single dose 2020-03-02 Completed [facility] 13:07:00 [facility] Afluria single dose Afluria single dose 2020-03-02 Completed [facility] 13:07:00 [facility] Afluria single dose Afluria single dose 2020-03-02 Completed [facility] 13:07:00 [facility] Afluria single dose Afluria single dose 2020-03-02 Completed [facility] 13:07:00 [facility] Afluria single dose Afluria single dose 2020-03-02 Completed [facility] 13:07:00 [facility] Afluria single dose Afluria single dose 2020-03-02 Completed [facility] 13:07:00 [facility] Afluria single dose Afluria single dose 2020-03-02 Completed [facility] 13:07:00 [facility] Afluria single dose Afluria single dose 2020-03-02 Completed [facility] 13:07:00 [facility] Afluria single dose Afluria single dose 2020-03-02 Completed [facility] 13:07:00 [facility] Afluria single dose Afluria single dose 2020-03-02 Completed [facility] 13:07:00 [facility] Afluria single dose Afluria single dose 2020-03-02 Completed [facility] 13:07:00 - [facility] Afluria single dose Afluria single dose 2020-03-02 Completed [facility] 13:07:00 - [facility] Afluria single dose Afluria single dose 2020-03-02 Completed [facility] 13:07:00 - [facility] Afluria single dose Afluria single dose 2020-03-02 Completed [facility] 13:07:00 - [facility] Afluria single dose Afluria single dose 2020-03-02 Completed [facility] 13:07:00 - [facility] Afluria single dose Afluria single dose 2020-03-02 Completed [facility] 13:07:00 - [facility] Afluria single dose Afluria single dose 2020-03-02 Completed [facility] 13:07:00 - [facility] Afluria single dose Afluria single dose 2020-03-02 Completed [facility] 13:07:00 - [facility] Afluria single dose Afluria single dose 2020-03-02 Completed [facility] 13:07:00 - [facility] Afluria single dose Afluria single dose 2020-03-02 Completed [facility] 13:07:00 - [facility] Afluria single dose Afluria single dose 2020-03-02 Completed [facility] 13:07:00 - [facility] Afluria Afluria 2018-04-09 Completed [facility] 11:16:00 - [facility] Afluria Afluria 2018-04-09 Completed [facility] 11:16:00 - [facility] Afluria Afluria 2018-04-09 Completed [facility] 11:16:00 - [facility] Afluria Afluria 2018-04-09 Completed [facility] 11:16:00 - [facility] Afluria Afluria 2018-04-09 Completed [facility] 11:16[facility]00 - [facility] Afluria Afluria 2018-04-09 Completed [facility] 11:16:00 - [facility] Afluria Afluria 2018-04-09 Completed [facility] 11:16:00 - [facility] Afluria Afluria 2018-04-09 Completed [facility] 11:16:00 - [facility] Afluria Afluria 2018-04-09 Completed [facility] 11:16:00 - [facility] Afluria Afluria 2018-04-09 Completed [facility] 11:16:00 - [facility] Afluria Afluria 2018-04-09 Completed [facility] 11:16:00 - [facility] Afluria Afluria 2018-04-09 Completed [facility] 11:16:00 - [facility] Afluria Afluria 2018-04-09 Completed [facility] 11:16:00 - [facility] Afluria Afluria 2018-04-09 Completed [facility] 11:16:00 - [facility] Afluria Afluria 2018-04-09 Completed [facility] 11:16:00 - [facility] Afluria Afluria 2018-04-09 Completed [facility] 11:16:00 - [facility] Afluria Afluria 2018-04-09 Completed [facility] 11:16:00 - [facility] Afluria Afluria 2018-04-09 Completed [facility] 11:16:00 - [facility] Afluria Afluria 2018-04-09 Completed [facility] 11:16:00 - [facility] Afluria Afluria 2018-04-09 Completed [facility] 11:16:00 - [facility] Afluria Afluria 2018-04-09 Completed [facility] 11:16:00 - [facility] Afluria Afluria 2018-04-09 Completed [facility] 11:16:00 - [facility] Afluria Afluria 2018-04-09 Completed [facility] 11:16:00 - [facility] Afluria Afluria 2018-04-09 Completed [facility] 11:16:00 [facility] Vital Signs Vital Name Observation Time Observation Value Comments Source height 2022-03-30 16:10:00 67.5 [in_i] [facility] weight 2022-03-30 16:10:00 264.4 [lb_av] [facility] temperature 2022-03-30 16:10:00 97.3 [degF] [facility] bmi 2022-03-30 16:10:00 40.8 kg/m2 [facility] oximetry 2022-03-30 16:10:00 99 % Common [facility] respiratory rate 2022-03-30 16:10:00 18 /min Comm on [facility] blood pressure 2022-03-30 16:10:00 119 mm[Hg] Common [facility] - systolic [facility] blood pressure 2022-03-30 16:10:00 67 mm[Hg] [facility] - diastolic [facility] height 2022-03-23 08:00:00 67.5 [in_i] Common [facility] weight 2022-03-23 08:00:00 266.2 [lb_av] [facility] temperature 2022-03-23 08:00:00 97.8 [degF] [facility] bmi 2022-03-23 08:00:00 41.07 kg/m2 [facility]irit [facility] blood pressure 2022-03-23 08:00:00 126 mm[Hg] [facility] - systolic [facility] blood pressure 2022-03-23 08:00:00 82 mm[Hg] Common [facility] - diastolic [facility] height 2022-03-07 10:40:00 67.5 [in_i] [facility] weight 2022-03-07 10:40:00 270 [lb_av] [facility] temperature 2022-03-07 10:40:00 97.6 [degF] [facility] bmi 2022-03-07 10:40:00 41.66 kg/m2 [facility] oximetry 2022-03-07 10:40:00 96 % [facility] respiratory rate 2022-03-07 10:40:00 16 /min Comm on [facility] blood pressure 2022-03-07 10:40:00 130 mm[Hg] Common [facility] - systolic [facility] blood pressure 2022-03-07 10:40:00 82 mm[Hg] [facility] - diastolic [facility] Systolic blood 2022-03-01 14:35:00 123 mm[Hg] Univer sity of pressure [facility] Diastolic blood 2022-03-01 14:35:00 73 mm[Hg] Unive rsity of pressure [facility] Heart rate 2022-03-01 14:35:00 85 /min Universi ty [facility] Body temperature 2022-03-01 14:35:00 35.94 [facility] Res[facility] rate 2022-03-01 14:35:00 19 /min [facility] Body height 2022-03-01 14:35:00 172.7 cm Universi ty [facility] Body weight 2022-03-01 14:35:00 123.061 [facility] BMI 2022-03-01 14:35:00 41.25 kg/m2 [facility] Oxygen saturation in 2022-03-01 14:35:00 98 /min [facility] blood by [facility] Pulse oximetry Branch height 2022-02-08 16:40:00 67.5 [in_i] Common [facility] weight 2022-02-08 16:40:00 270.8 [lb_av] Common [facility] temperature 2022-02-08 16:40:00 97.6 [degF] Common [facility] bmi 2022-02-08 16:40:00 41.78 kg/m2 [facility] oximetry 2022-02-08 16:40:00 98 % [facility] respiratory rate 2022-02-08 16:40:00 18 /min Comm on [facility] - [facility] blood pressure 2022-02-08 16:40:00 127 mm[Hg] Common [facility] - systolic [facility] blood pressure 2022-02-08 16:40:00 73 mm[Hg] Common [facility] - diastolic [facility] height 2022-01-03 08:00:00 67.5 [in_i] [facility] weight 2022-01-03 08:00:00 255 [lb_av] [facility] temperature 2022-01-03 08:00:00 98 [degF] [facility] bmi 2022-01-03 08:00:00 39.34 kg/m2 [facility] blood pressure 2022-01-03 08:00:00 130 mm[Hg] [facility] - systolic [facility] blood pressure 2022-01-03 08:00:00 72 mm[Hg] [facility] - diastolic [facility] height 2021-12-08 09:00:00 67.5 [in_i] Common [facility] weight 2021-12-08 09:00:00 266.8 [lb_av] [facility] bmi 2021-12-08 09:00:00 41.17 kg/m2 [facility] height 2021-11-09 15:50:00 67.5 [in_i] [facility] S [facility] weight 2021-11-09 15:50:00 266.8 [lb_av] [facility] temperature 2021-11-09 15:50:00 97.5 [degF] [facility] bmi 2021-11-09 15:50:00 41.17 kg/m2 [facility] oximetry 2021-11-09 15:50:00 94 % [facility] respiratory rate 2021-11-09 15:50:00 16 /min Comm on [facility] blood pressure 2021-11-09 15:50:00 132 mm[Hg] [facility] - systolic [facility] blood pressure 2021-11-09 15:50:00 70 mm[Hg] Common [facility] - diastolic [facility] height 2021-08-10 16:20:00 67.5 [in_i] [facility] weight 2021-08-10 16:20:00 270.2 [lb_av] Common [facility] temperature 2021-08-10 16:20:00 97.5 [degF] [facility] bmi 2021-08-10 16:20:00 41.69 kg/m2 [facility] oximetry 2021-08-10 16:20:00 98 % [facility] 2021-08-10 16:20:00 18 /min Comm on [facility] blood pressure 2021-08-10 16:20:00 124 mm[Hg] [facility] - systolic [facility] blood pressure 2021-08-10 16:20:00 69 mm[Hg] Common [facility] - diastolic [facility] height 2021-05-11 16:20:00 67.5 [in_i] Common [facility] weight 2021-05-11 16:20:00 266.6 [lb_av] [facility] temperature 2021-05-11 16:20:00 97.3 [degF] Common [facility] bmi 2021-05-11 16:20:00 41.13 kg/m2 [facility] oximetry 2021-05-11 16:20:00 100 % [facility] respiratory rate 2021-05-11 16:20:00 18 /min Comm on [facility] blood pressure 2021-05-11 16:20:00 138 mm[Hg] [facility] - systolic [facility] blood pressure 2021-05-11 16:20:00 72 mm[Hg] Common [facility] - diastolic [facility] height 2021-03-21 13:20:00 67.5 [in_i] Common [facility] weight 2021-03-21 13:20:00 273.3 [lb_av] [facility] temperature 2021-03-21 13:20:00 97.2 [degF] Common S [facility]irit [facility] bmi 2021-03-21 13:20:00 42.17 kg/m2 [facility] oximetry 2021-03-21 13:20:00 99 % [facility] respiratory rate 2021-03-21 13:20:00 16 /min Comm on [facility] blood pressure 2021-03-21 13:20:00 135 mm[Hg] Common [facility] - systolic [facility] blood pressure 2021-03-21 13:20:00 67 mm[Hg] Common [facility] - diastolic [facility] Procedures Procedure Date / Time Performed Performing Clinician Sour e ASSIGNMENT OF BENEFITS 2022-03-01 14:16:18 Doctor Unassigned, No [facility] ASSIGNMENT OF BENEFITS 2021-01-13 22:01:26 Doctor Unassigned, No [facility] Encounters Start End Encounter Admission Attending Care Care Encounter Source Date/Time Date/Time Type Type Clinicians Facility Department ID 2022-03-31 Outpatient Mckay, STLMLC STLMLC [id number] Common 08:55:01 Cari [facility] 2022-03-29 Outpatient Mckay, STLMLC STLMLC [id number] Common 14:33:00 Cari [facility] 2022-03-01 Outpatient Mckay, STLMLC STLMLC [id number] Common 16:37:00 Cari [facility] 2022-02-28 Outpatient Mckay, STLMLC STLMLC [id number] Common 15:59:00 Cari [facility] 2022-02-13 Outpatient Mckay, STLMLC STLMLC [id number] Common 09:53:00 Cari [facility] 2021-06-29 Outpatient Mckay, STLMLC STLMLC [id number] Common 14:23:20 Cari 15147 [facility] 2021-06-29 Outpatient Mckay, STLMLC STLMLC [id number] Common 12:40:35 Cari 65139 [facility] 2021-06-29 Outpatient Mckay, STLMLC STLMLC [id number] Common 12:39:42 Cari 92768 [facility] 2021-06-29 Outpatient Mckay, STLMLC STLMLC [id number] Common 12:38:42 Cari 16052 [facility] 2021-06-29 Outpatient Mckay, STLMLC STLMLC [id number] Common 12:37:25 Cari 74486 [facility] 2021-06-29 Outpatient Mckay, STLMLC STLMLC [id number] Common 12:07:26 Cari 27903 [facility] 2021-06-29 Outpatient Mckay, STLMLC STLMLC [id number] Common 11:46:04 Cari 35569 [facility] 2021-06-29 Outpatient [place], STLMLC STLMLC [id number] Common 11:45:34 [place] 02895 [facility] 2022-06-28 2022-06-28 Outpatient Ramon RICHARDS, [facility] [id number] Univers 16:00:00 16:00:00 [facility] 2022-04-04 2022-04-04 (TEL) STLMLC STLMLC [id number] Co mmon 00:00:00 00:00:00 [facility] 2022-04-04 2022-04-04 (TEL) STLMLC STLMLC [id number] Co mmon 00:00:00 00:00:00 [facility] 2022-03-30 2022-03-30 OFFICE STLMLC STLMLC [id number] Co mmon 00:00:00 00:00:00 VISIT EST Spir it PT LEVEL 3 [facility] 2022-03-27 2022-03-27 [facility] [id number] Univers 14:00:00 14:00:00 [facility] sukhjinder [facility] 2022-03-27 2022-03-27 (TEL) STLMLC STLMLC [id number] Co mmon 00:00:00 00:00:00 [facility] 2022-03-24 2022-03-24 (TEL) STLMLC STLMLC [id number] Co mmon 00:00:00 00:00:00 [facility] 2022-03-23 2022-03-23 CONSULT - STLMLC STLMLC [id number] Common 00:00:00 00:00:00 OFFICE, L4 Spi rit [facility] 2022-03-22 2022-03-22 (TEL) STLMLC STLMLC [id number] Co mmon 00:00:00 00:00:00 [facility] 2022-03-07 2022-03-07 OFFICE STLMLC STLMLC [id number] Co mmon 00:00:00 00:00:00 VISIT [facility] LEVEL 4 [facility] 2022-03-03 2022-03-03 (TEL) STLMLC STLMLC [id number] Co mmon 00:00:00 00:00:00 [facility] 2022-03-01 2022-03-01 Outpatient R MUARICE [facility] [id number] Univers 09:20:00 09:59:50 AGUSTÍN slaughter o f [facility] 2022-03-01 2022-03-01 Office [facility] [id number] Univers 09:20:00 09:59:50 Visit Agustín AMOR [id number] ity of [id number] PROF[place] [phone] Ok dical NAL 0[address] Branch [facility] 2022-03-01 2022-03-01 Orders Doctor HERMELINDA [id number] Univers 00:00:00 00:00:00 Only Unassigned, MAR [id number] [place] [facility] [id number] Juan Miguel as [phone] [facility] 00[address] Branch 2022-02-27 2022-02-28 Outpatient nullFlavo MNA [id number] Memoria 13:15:00 04:59:59 r Neurology 00 l Emelyn Pichardo 2022-02-27 2022-02-27 Outpatient YRN SousaSCHMAURICIO [id number] 08:15:00 23:59:59 Donn Agusto Banegas 2022-02-27 2022-02-27 Outpatient MHIE MHIE [id number] Memoria 08:15:00 08:15:00 00 rosemarie Pichardo 2022-02-27 2022-02-27 Outpatient MHIE MHIE [id number] Memoria 08:15:00 08:15:00 00 rosemarie Pichardo 2022-02-27 2022-02-27 (TEL) STLMLC STLMLC [id number] Co mmon 00:00:00 00:00:00 [facility] 2022-02-08 2022-02-08 OFFICE STLMLC STLMLC [id number] Co mmon 00:00:00 00:00:00 VISIT [facility] PT - CHI LEVEL 4 [facility] 2022-01-03 2022-01-03 OFFICE STLMLC STLMLC [id number] Co mmon 00:00:00 00:00:00 VISIT [facility] PT - CHI LEVEL 4 [facility] 2022-01-03 2022-01-03 (TEL) STLMLC STLMLC [id number] Co mmon 00:00:00 00:00:00 [facility] 2021-12-08 2021-12-08 OFFICE STLMLC STLMLC [id number] Co mmon 00:00:00 00:00:00 VISIT EST Spir it PT LEVEL 3 - [facility] 2021-12-07 2021-12-07 (TEL) STLMLC STLMLC [id number] Co mmon 00:00:00 00:00:00 [facility] 2021-11-09 2021-11-09 OFFICE STLMLC STLMLC [id number] Co mmon 00:00:00 00:00:00 VISIT [facility] ESTAB PT - CHI LEVEL 4 [facility] 2021-08-22 2021-08-22 (TEL) STLMLC STLMLC [id number] Co mmon 00:00:00 00:00:00 [facility] 2021-08-10 2021-08-10 PREV VISIT STLMLC STLMLC [id number] Common 00:00:00 00:00:00 EST AGE Dennis 40-64 - CHI [facility] 2021-05-11 2021-05-11 OFFICE STLMLC STLMLC [id number] Co mmon 00:00:00 00:00:00 [facility]IT [facility] ESTAB PT - CHI LEVEL 4 [facility] 2021-03-21 2021-03-21 (TEL) STLMLC STLMLC [id number] Co mmon 00:00:00 00:00:00 Spirit CHI [facility] 2021-03-21 2021-03-21 OFFICE STLMLC STLMLC [id number] Co mmon 00:00:00 00:00:00 VISIT [facility] ESTAB PT - CHI LEVEL 4 [facility] 2021-02-10 2021-02-10 Outpatient STLMLC STLMLC [id number] Common 00:00:00 00:00:00 [facility] 2021-01-16 2021-01-16 Outpatient R OSCAR [facility] [id number] Univers 15:20:00 15:20:00 [facility] 2021-01-16 2021-01-16 Laboratory Lab, [facility] 1.2. [id number] Univers 14:47:23 15:07:23 Only [facility] [id number] [place] of [place] [id number] Juan Miguel as Professio [phone] [address] Office [facility] 2021-01-13 2021-01-13 Laboratory [facility], [facility] 1.2. 840.114 [id number] Univers 17:09:18 17:29:18 Only Fidel Matute [facility] [id number] ity of [place] [id number] Juan Miguel as Professio [phone] [address] One 2021-01-13 2021-01-13 Outpatient R LANA [facility] [id number] Univers 17:00:00 17:00:00 [facility] 2021-01-13 2021-01-13 Orders Doctor HERMELINDA 1.2.840.114 [id number] Univers 00:00:00 00:00:00 Only Unassigned, MAR [id number] [place] of [place] [facility] [id number] Juan Miguel as [id number] [facility] 009 Branch 2021-01-13 2021-01-13 Letter Doctor HERMELINDA 1.2.840.114 [id number] Univers 00:00:00 00:00:00 (Out) Unassigned, MAR [id number] it[place] of [place] [facility] [id number] Juan Miguel as [phone] [facility] 044 Branch 2021-01-13 2021-01-13 Letter Doctor HERMELINDA [id number] [id number] Univers 00:00:00 00:00:00 (Out) Unassigned, MAR [id number] it[place] of [place] [facility] [id number] Juan Miguel as [phone] [facility] 044 Branch 2020-12-31 2020-12-31 Outpatient STLMLC STLMLC [id number] Common 00:00:00 00:00:00 [facility] 2020-12-31 2020-12-31 Outpatient STLMLC STLMLC [id number] Common 00:00:00 00:00:00 [facility] 2020-12-08 2020-12-08 Outpatient STLMLC STLMLC [id number] Common 00:00:00 00:00:00 [facility] 2020-12-08 2020-12-08 Outpatient STLMLC STLMLC [id number] Common 00:00:00 00:00:00 [facility] 2020-10-27 2020-10-27 Outpatient STLMLC STLMLC [id number] Common 00:00:00 00:00:00 [facility] 2020-08-13 2020-08-13 Outpatient STLMLC STLMLC [id number] Common 00:00:00 00:00:00 [facility] 2020-08-11 2020-08-11 Outpatient STLMLC STLMLC [id number] Common 00:00:00 00:00:00 [facility] 2020-08-04 2020-08-04 Outpatient STLMLC STLMLC [id number] Common 00:00:00 00:00:00 [facility] 2020-08-01 2020-08-01 Outpatient STLMLC STLMLC [id number] Common 00:00:00 00:00:00 [facility] 2020-08-01 2020-08-01 Outpatient STLMLC STLMLC [id number] Common 00:00:00 00:00:00 [facility] 2020-08-01 2020-08-01 Outpatient STLMLC STLMLC [id number] Common 00:00:00 00:00:00 [facility] 2020-08-01 2020-08-01 Outpatient STLMLC STLMLC [id number] Common 00:00:00 00:00:00 [facility] 2020-06-16 2020-06-16 Outpatient STLMLC STLMLC [id number] Common 00:00:00 00:00:00 [facility] 2020-06-16 2020-06-16 Outpatient STLMLC STLMLC [id number] Common 00:00:00 00:00:00 [facility] 2020-06-03 2020-06-03 Outpatient STLMLC STLMLC [id number] Common 00:00:00 00:00:00 [facility] 2020-05-06 2020-05-06 Outpatient STLMLC STLMLC [id number] Common 00:00:00 00:00:00 [facility] 2020-02-17 2020-02-17 [facility] [id number] Common 11:00:00 11:00:[address] [facility] Family Medicine [facility] 2018-02-14 2018-02-14 Out[facility] [id number] Common 14:00:00 14:00:00 t Specialty/U Sp rita Specialty rology - [facility] /Urology Clinic [facility] 2018-02-05 2018-02-05 [facility] [id number] Common 17:00:00 17:00:00 t Urgent Urgent Care [facility] 2017-12-29 2017-12-29 [facility] [id number] Common 13:25:00 13:25:00 t Urgent Urgent Care [facility] - [facility] Clinic [facility] 2017-12-29 2017-12-29 Out[facility] [id number] Common 11:00:00 11:00:00 t Urgent Urgent Care [facility] 2017-12-16 2017-12-16 [facility] [id number] Common 14:00:00 14:00:00 t Urgent Urgent Care [facility] 2017-11-13 2017-11-13 [facility] [id number] Common 12:02:00 12:02:00 [facility] [address] [facility] 2017-11-01 2017-11-01 Out[facility] [id number] Common 16:15:00 16:15:00 t [facility] it Road [facility] 2017-10-23 2017-10-23 Out[facility] [id number] Common 09:00:00 09:00:00 t [facility] [address] [facility] it Road [facility] Results Test Description Test Time Test Comments Results Result Comments Source HEMOGLOBIN A1C 2022-03-30 00:00:00 Test Item Value Reference Range Interpretation Comme nts A1C (test code = 4548-4) 6.9 HEMOGLOBIN [id number] 00:00:00 Test Item Value Reference Range Interpretation Comments A1C (test code = 4548-4) 6.9 HEMOGLOBIN [id number] 00:00:00 Test Item Value Reference Range Interpretation Comments A1C (test code = 4548-4) 6.9
[2022-04-14 16:11] LABS: Urine Blood Negative (Negative); Urine Glucose Negative (Negative); Urine Protein Negative (Negative); Urine Specific Gravity 1.015 (1.005-1.030); Urine pH 6.5 (5.0-7.0)
[2022-04-14] MEDS ORDERED: ACETAMINOPHEN 500 MG TAB ONE (16:59)
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
--- NOTE | 2022-04-14 18:55 | RAD REPORT ---
EXAM DESCRIPTION: RAD - Elbow Right 3 View - 04/14/2022 6:49 pm CLINICAL HISTORY: Pain COMPARISON: No comparisons FINDINGS/IMPRESSION: Overlap of the radial head and neck that is favored chronic. Degenerative casillas es at the coronoid process and olecranon. No definite fractures identified. No elbow effusion. If the patient has significant pain at the radial head, CT could exclude an acute fracture.
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
[2022-04-14 19:40] VITALS: O2SAT 100
[2022-04-14 19:55] VITALS: BP 142/71; TEMP 98.2
== END 2022-04-14 19:33 | disposition home or self-care (01) ==
LOC: ER 15:57
DX: R51.9 Headache, unspecified (principal); R07.9 Chest pain, unspecified; M25.521 Pain in right elbow; V49.59XA Passenger injured in collision with other motor vehicles in traffic accident, initial encounter
CPT/HCPCS: 70450; 72125; 81003; 99284

== ENCOUNTER 2022-05-11 06:59 | Day surgery (SDC) | payer BC ==
[2022-05-11] MEDS ORDERED: CEFAZOLIN SODIUM 1 GM/VIAL ONE (07:20)
[2022-05-11] MEDS ORDERED: NA CHLORIDE 0.9% 1,000 ML ONE (07:21)
[2022-05-11] MEDS ORDERED: BUPIVACAINE 0.25% PF 10 ML VIAL ONE (07:30)
[2022-05-11] MEDS ORDERED: FENTANYL CITR 100 MCG/2 ML ONE (07:48)
[2022-05-11] MEDS ORDERED: propofoL 200 MG/20 ML VIAL IV ONE ×2 (07:48→08:28)
[2022-05-11] MEDS ORDERED: MIDAZOLAM HCL 2 MG/2 ML INJ ONE (07:48)
[2022-05-11] MEDS ORDERED: LIDOCAINE 2% MPF 5 ML VIAL ONE (07:49)
[2022-05-11] MEDS ORDERED: dexAMETHasone 10 MG/ML VIAL ONE (08:15)
[2022-05-11] MEDS ORDERED: KETOROLAC 30 MG/ML INJ ONE (08:16)
[2022-05-11] MEDS ORDERED: ONDANSETRON 4 MG/2 ML VIAL ONE (08:18)
[2022-05-11] MEDS ORDERED: DIPHENHYDRAMINE 50 MG/ML VIAL ONE (08:40)
[2022-05-11 09:03] VITALS: O2SAT 100
--- NOTE | 2022-05-11 09:09 | P.BOP ---
Preoperative diagnosis: right carpal tunnel syndrome Postoperative diagnosis: same Primary procedure: right open carpal tunnel release Machine Assistant: NONE,NONE Estimated blood loss: 3 cc Specimen: none Findings: see dictation Anesthesia: General Complications: None Implants: none Fluids & blood products: per anesthesia record; TT: 16 mins @ 250 mmHg Transferred to: Recovery Room Condition: Good
[2022-05-11 10:51] VITALS: BP 122/63; TEMP 96.5
== END 2022-05-11 10:31 | disposition home or self-care (01) ==
LOC: OR 06:59
PROVIDERS: ATTEND Orthopaedic Surgery Sports Medicine
PROC: 01N50ZZ Release Median Nerve, Open Approach (ICD-10-PCS; principal; 2022-05-11 08:00)
DX: G56.01 Carpal tunnel syndrome, right upper limb (principal); I10 Essential (primary) hypertension; E11.9 Type 2 diabetes mellitus without complications
CPT/HCPCS: 82947 ×2; 64721; J2704 ×2; J1200; J2001; J2250; J3010; J1100; J7030; J2405; J0690